=== PATIENT | male | born 1955 ===

== ENCOUNTER 2017-05-20 18:48 | Observation (INO) | payer BC ==
[2017-05-20 18:48] VITALS: BMI 29.0
[2017-05-20] MEDS ORDERED: Albuterol-Ipratrop 3 mg / 0.5 (3 ml) UD IH STA ×2 (19:48→23:15)
--- NOTE | 2017-05-20 19:54 | ED PDOC ---
Arrival/HPI <Kaela Eisenberg - Last Filed: 05/20/17 23:15> - General Historian: Patient - History of Present Illness Time/Duration: 1 week Symptom Onset: Gradual Symptom Course: Improving Activities at Onset: Light <Geovanny Grace DO - Last Filed: 05/21/17 06:21> - General Chief Complaint: Cough, Cold, Congestion Time Seen by Provider: 05/20/17 19:19 - History of Present Illness Narrative History of Present Illness (Text): CC: cough 05/20/17 19:51 62M presents with PMH of HTN, HLD, and asthma presents with coughing since Monday 05/15. Patient states that he started coughing on Tuesday with some blood production. Patient states he takes montelukast every day for his asthma. Patient states he feels better compared to Tuesday, but is concerned about his fever. Stevens (Kaela Eisenberg) Past Medical History - Infectious Disease Hx of Infectious Diseases: None - Tetanus Immunization Tetanus Immunization: Unknown - Cardiac Hx Hypertension: Yes - Pulmonary Hx Asthma: Yes - Hematological/Oncological Hx Cancer: Yes (prostate ca) - Musculoskeletal/Rheumatological Hx Falls: No - Genitourinary/Gynecological Hx Prostate Cancer: Yes (2005) - Psychiatric Hx Depression: No Hx Emotional Abuse: No Hx Physical Abuse: No Hx Substance Use: No - Surgical History Other/Comment: Prostate removed in 2005 - Anesthesia Hx Anesthesia: Yes Hx Anesthesia Reactions: No Hx Malignant Hyperthermia: No - Suicidal Assessment Feels Threatened In Home Enviroment: No <Kaela Eisenberg - Last Filed: 05/20/17 23:15> Family/Social History Family/Social History: Unknown Family HX Smoking Status: Never Smoked Hx Alcohol Use: Yes Hx Substance Use: No <Kaela Eisenberg - Last Filed: 05/20/17 23:15> Allergies/Home Meds <Kaela Eisenberg - Last Filed: 05/20/17 23:15> <Geovanny Grace DO - Last Filed: 05/21/17 06:21> Allergies/Adverse Reactions: Allergies No Known Allergies Allergy (Verified 10/31/13 02:26) Home Medications: Home Meds Medication Instructions Recorded Confirmed Atorvastatin [Lipitor] 10 mg PO DAILY 11/06/15 05/20/17 Lisinopril/Hydrochlorothiazide 1 tab PO DAILY 11/06/15 05/20/17 [Lisinopril-Hctz 20-25 mg Tab] Montelukast [Singulair] 10 mg PO DAILY 11/06/15 05/20/17 Omeprazole [Prilosec] 20 mg PO DAILY 11/06/15 05/20/17 amLODIPine [Norvasc] 10 mg PO DAILY 11/06/15 05/20/17 Review of Systems - Physician Review All systems were reviewed & negative as marked: Yes - Review of Systems Constitutional: Normal Eyes: Normal ENT: Normal Respiratory: Cough, Sputum, Wheezing Cardiovascular: Normal Gastrointestinal: absent: Abdominal Pain, Stool Changes, Constipation, Diarrhea Genitourinary Male: absent: Dysuria, Frequency, Hematuria, Urinary Output Changes Musculoskeletal: absent: Arthralgias, Back Pain, Neck Pain Skin: absent: Rash, Pruritis, Skin Lesions Neurological: absent: Headache, Dizziness, Focal Weakness Endocrine: absent: Diaphoresis, Polyuria, Polydipsia Hemo/Lymphatic: absent: Adenopathy, Easy Bleeding, Easy Bruising Psychiatric: absent: Anxiety, Depression, Suicidal Ideation <Eng,Kaela - Last Filed: 05/20/17 23:15> Physical Exam Vital Signs Reviewed: Yes Temperature: Febrile Blood Pressure: Normal Pulse: Regular Respiratory Rate: Normal Appearance: Positive for: Uncomfortable Pain Distress: Mild Mental Status: Positive for: Alert and Oriented X 3 - Systems Exam Head: Present: Atraumatic, Normocephalic Pupils: Present: PERRL Extroacular Muscles: Present: EOMI Conjunctiva: Present: Normal Mouth: Present: Moist Mucous Membranes. No: Dry, Drooling, Trismus Respiratory/Chest: Present: Wheezes, Decreased Breath Sounds. No: Accessory Muscle Use, Rhonchi Cardiovascular: Present: Regular Rate and Rhythm, Normal S1, S2 Upper Extremity: Present: Normal Inspection, Normal ROM, NORMAL PULSES, Capillary Refill < 2s. No: Edema Lower Extremity: Present: Normal Inspection, NORMAL PULSES, Normal ROM, Capillary Refill < 2 s. No: Edema Neurological: Present: GCS=15, CN II-XII Intact, Speech Normal Skin: Present: Warm, Dry Psychiatric: Present: Alert, Oriented x 3, Normal Insight, Normal Concentration <Eng,Kaela - Last Filed: 05/20/17 23:15> Vital Signs Temp Pulse Resp BP Pulse Ox 05/21/17 00:01 71 18 126/78 96 05/20/17 21:12 99.6 F 05/20/17 19:54 103 F H 05/20/17 19:10 103 F H 72 18 127/68 100 Medical Decision Making Re-evaluation Time: 23:15 Reassessment Condition: Re-examined, Improving,but remains with symptoms - Lab Interpretations I have reviewed the lab results: Yes Interpretation: Abnormal lab values (leukocytosis 12.5) - 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 Patient was seen and evaluated with resident. Came up with plan and treatment together. Patient presents complaining of cough for the past week. Plan: -- EKG -- Labs -- CXR 2 Views -- Zithromax -- Blood Culture -- Urine Culture -- Influenza A B -- Urinalysis (Geovanny Grace DO) - Lab Interpretations Narrative Lab Interpretation (Text): 05/20/17 21:06 leukocytosis negative troponin I (Kaela Eisenberg) Lab Results: 05/20/17 19:55 05/20/17 19:55 Lab Results 05/20/17 19:55: Influenza Typ A,B (EIA) Negative for flu a/b 05/20/17 19:55: Sodium 139, Potassium 3.6, Chloride 101, Carbon Dioxide 28, Anion Gap 13, BUN 11, Creatinine 1.0, Est GFR ( Amer) > 60, Est GFR (Non- Af Amer) > 60, Random Glucose 108, Calcium 9.3, Total Bilirubin 0.6, AST 33, ALT 34, Alkaline Phosphatase 73, Lactate Dehydrogenase 617, Total Creatine Kinase 341 H, CK-MB (CK-2) 1.1, CK-MB (CK-2) % Cancelled, Troponin I < 0.01, Total Protein 7.2, Albumin 3.9, Globulin 3.3, Albumin/Globulin Ratio 1.2 05/20/17 19:55: WBC 12.5 H D, RBC 5.29, Hgb 12.2 L, Hct 38.4 L, MCV 72.6 L, MCH 23.1 L, MCHC 31.8, RDW 14.7 H, Plt Count 185, MPV 9.5, Gran % 74.7 H, Lymph % ( Auto) 15.6 L, [place] % (Auto) 8.9 H, Eos % (Auto) 0.6 L, Baso % (Auto) 0.2, Gran # 9.36 H, Lymph # 2.0, [place] # 1.1 H, Eos # 0.1, Baso # 0.02 - RAD Interpretation Narrative RAD Interpretations (Text): 05/20/17 23:16 CXR pneumonia (Eng,Kaela) Radiology Orders: 05/20/17 19:20 CHEST TWO VIEWS (PA/LAT) [RAD] Stat - Medication Orders Current Medication Orders: Acetaminophen (Tylenol 325mg Tab) 650 mg PO Q6H PRN PRN Reason: Fever >100.4 F Albuterol/Ipratropium (Duoneb 3 Mg/0.5 Mg (3 Ml) Ud) 3 ml IH [id number] [facility] Last Admin: 05/21/17 01:23 Dose: 3 ml Amlodipine Besylate (Norvasc) 10 mg PO DAILY NAS Atorvastatin Calcium (Lipitor) 10 mg PO DAILY NAS Guaifenesin (Robitussin) 100 mg PO Q4H PRN PRN Reason: Cough Heparin Sodium (Porcine) (Heparin) 5,000 units SC Q12 NAS PRN Reason: Protocol Last Admin: 05/21/17 01:32 Dose: Not Given Non-Admin Reason: Patient Asleep Hydrochlorothiazide (Hydrodiuril) 25 mg PO DAILY [facility] Ceftriaxone Sodium (Rocephin 1 Gram Ivpb) 1 gm in 100 mls @ 100 mls/hr IVPB DAILY NAS PRN Reason: Protocol Azithromycin (Zithromax 500mg In Ns) 500 mg in 250 mls @ 167 mls/hr IVPB DAILY NAS PRN Reason: Protocol Lisinopril (Zestril) 20 mg PO DAILY NAS Montelukast Sodium (Singulair) 10 mg PO HS NAS Pantoprazole Sodium (Protonix Inj) 40 mg IVP Q12 NAS Last Admin: 05/21/17 01:33 Dose: Not Given Non-Admin Reason: Patient Asleep Discontinued Medications Acetaminophen (Tylenol 325mg Tab) 975 mg PO STAT STA Stop: 05/20/17 19:21 Last Admin: 05/20/17 19:54 Dose: 975 mg MAR Pain/Vitals Document 05/20/17 19:54 SS (Rec: 05/20/17 19:54 SS [id number]) Vitals Temperature (97.6 F-99.6 F) 103 F Temperature Source Oral Albuterol/Ipratropium (Duoneb 3 Mg/0.5 Mg (3 Ml) Ud) 3 ml IH STAT STA Stop: 05/20/17 19:49 Last Admin: 05/20/17 20:39 Dose: 3 ml Albuterol/Ipratropium (Duoneb 3 Mg/0.5 Mg (3 Ml) Ud) 3 ml IH STAT STA Stop: 05/20/17 23:16 Last Admin: 05/21/17 00:22 Dose: 3 ml Ceftriaxone Sodium (Rocephin 2 Gm Ivpb) 2 gm in 100 mls @ 100 mls/hr IVPB STAT STA PRN Reason: Protocol Stop: 05/21/17 00:02 Last Admin: 05/21/17 00:21 Dose: 100 mls/hr eMAR Start Stop Document 05/21/17 00:21 SS (Rec: 05/21/17 00:22 SS [id number]) Intravenous Solution Start Date 05/21/17 Start Time 00:22 Azithromycin (Zithromax 500mg In Ns) 500 mg in 250 mls @ 167 mls/hr IVPB STAT STA PRN Reason: Protocol Stop: 05/21/17 00:32 Methylprednisolone (Solu-Medrol) 125 mg IVP STAT STA Stop: 05/20/17 19:49 Last Admin: 05/20/17 20:39 Dose: 125 mg IVP Administration Document 05/20/17 20:39 SS (Rec: 05/20/17 20:39 SS [id number]) Charges for Administration # of IVP Administrations 1 Pneumococcal Polyvalent Vaccine (Pneumovax 23 Vaccine) 0.5 ml IM .ONCE ONE Stop: 05/21/17 01:32 <Kaela Eisenberg - Last Filed: 05/20/17 23:15> - Scribe Statement The provider has reviewed the documentation as recorded by the Scribe <Geovanny Grace DO - Last Filed: 05/21/17 06:21> - Scribe Statement Yadi Fountain Provider Scribe Attestation: All medical record entries made by the Scribe were at my direction and personally dictated by me. I have reviewed the chart and agree that the record accurately reflects my personal performance of the history, physical exam, medical decision making, and the department course for this patient. I have also personally directed, reviewed, and agree with the discharge instructions and disposition. (Geovanny Grace DO) Disposition/Present on Arrival - Present on Arrival Any Indicators Present on Arrival: No History of DVT/PE: No History of Uncontrolled Diabetes: No Urinary Catheter: No History of Decub. Ulcer: No History Surgical Site Infection Following: None - Disposition Have Diagnosis and Disposition been Completed?: Yes Disposition Time: 23:18 Patient Plan: Observation <Kaela Eisenberg - Last Filed: 05/20/17 23:15> - Disposition Disposition Time: 23:10 <Geovanny Grace DO - Last Filed: 05/21/17 06:21> - Disposition Diagnosis: Pneumonia Disposition: HOSPITALIZED Patient Problems: Current Active Problems Problem Status Onset Pneumonia Acute Condition: GUARDED
[2017-05-20 20:18] LABS: BASO # 0.02 K/mm3 (0.0-2.0); BASO % 0.2 % (0.0-3.0); EOS # 0.1 (0.0-0.7); EOS % 0.6 % (1.5-5.0); GRAN # 9.36 (1.4-6.5); GRAN % 74.7 % (50.0-68.0); HEMOGLOBIN 12.2 g/dL (14.0-18.0); LYMPH % 15.6 % (22.0-35.0); MEAN CELL VOLUME 72.6 fl (80.0-105.0); MEAN CORPUSCULAR HEMOGLOBIN 23.1 pg (25.0-35.0); MEAN CORPUSCULAR HGB CONC 31.8 g/dl (31.0-37.0); MEAN PLATELET VOLUME 9.5 fl (7.0-11.0); MONO # 1.1 (0.1-0.6); MONO % 8.9 % (1.0-6.0); RBC 5.29 10^6/uL (3.5-6.1); RED CELL DISTRIBUTION WIDTH 14.7 % (11.5-14.5); WHITE BLOOD COUNT 12.5 10^3/ul (4.5-11.0)
[2017-05-20 20:33] LABS: ALB/GLOB RATIO 1.2 (1.1-1.8); ALBUMIN 3.9 g/dL (3.0-4.8); ALT/SGPT 34 U/L (7-56); AST/SGOT 33 U/L (17-59); BLOOD UREA NITROGEN 11 mg/dL (7-21); CALCIUM 9.3 mg/dL (8.4-10.5); GFR AFRICAN-AMERICAN > 60; GFR NON-AFRICAN AMERICAN > 60; TROPONIN I < 0.01 ng/mL
[2017-05-20 20:53] LABS: CK-MB 1.1 ng/mL (0.0-3.6)
[2017-05-20] MEDS ORDERED: Azithromycin 500MG/NS 250ml 500 MG/250 ML BAG IVPB STA (23:03)
[2017-05-20] MEDS ORDERED: cefTRIAXone 2 GM IN NS 2 GM/100 ML BAG IVPB STA (23:03)
--- NOTE | 2017-05-21 00:01 | CP.PCM.HP ---
<Frank Torre - Last Filed: 05/21/17 01:16> History of Present Illness - History of Present Illness History of Present Illness: Chief complaint: Incessant cough, fever, chills HPI:Patient is a 62 year old male with a past medical history of asthma, hypertension, dyslipidemia, prostate cancer s/p prostatectomy who presents to [facility] with complaints of cough which began five days ago. Patient states through the course of the week the became worse which caused him to miss work the past two days. Describes cough as productive currently producing white phlegm, initially noted to be blood tinged which has since resolved. Patient also admits to associated fevers and chills during the course of the week. Patient states he currently feels much better than he did previously. Denies chest pain, abdominal pain, headache, body aches, nausea, vomiting, diarrhea. 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 Stevens Surgical history: Prostatectomy s/p Prostate ca in 2005 (no radiation or chemotherapy) Present medical illness: asthma, hypertension, dyslipidemia Family history: non contributory Medications: singulair, lipitor, norvasc, lisinopril-HCTZ, prilosec. Patient states he is prescribed albuterol but does not take it because he doesn't feel the need, however states he takes singular on a daily basis Social history: denies tobacco, alcohol, illicit drug use Present on Admission - Present on Admission Any Indicators Present on Admission: No Review of Systems - Constitutional Constitutional: Chills, Fever. absent: Headache - EENT Eyes: absent: Blurred Vision, Change in Vision Nose/Mouth/Throat: absent: Nasal Congestion, Nasal Discharge - Cardiovascular Cardiovascular: absent: Chest Pain, Dyspnea, Palpitations - Respiratory Respiratory: Cough. absent: Dyspnea on Exertion, Wheezing - Gastrointestinal Gastrointestinal: absent: Abdominal Pain, Diarrhea, Nausea, Vomiting - Genitourinary Genitourinary: absent: Difficulty Urinating, Dysuria - Neurological Neurological: absent: Dizziness, Numbness, Weakness - Psychiatric Psychiatric: absent: Anxiety, Change in Appetite Past Patient History - Infectious Disease Hx of Infectious Diseases: None - Tetanus Immunizations Tetanus Immunization: Unknown - Past Social History Smoking Status: Never Smoked - CARDIAC Hx Hypertension: Yes - PULMONARY Hx Asthma: Yes - HEMATOLOGICAL/ONCOLOGICAL Hx Cancer: Yes (prostate ca) - MUSCULOSKELETAL/RHEUMATOLOGICAL Hx Falls: No - GENITOURINARY/GYNECOLOGICAL Hx Prostate Cancer: Yes (2005) - PSYCHIATRIC Hx Depression: No Hx Emotional Abuse: No Hx Physical Abuse: No Hx Substance Use: No - SURGICAL HISTORY Other/Comment: Prostate removed in 2005 - ANESTHESIA Hx Anesthesia: Yes Hx Anesthesia Reactions: No Hx Malignant Hyperthermia: No Meds Allergies/Adverse Reactions: Allergies Allergy/AdvReac Type Severity Reaction Status Date / Time No Known Allergies Allergy Verified 10/31/13 02:26 Physical Exam - Constitutional Appears: Non-toxic, No Acute Distress - Head Exam Head Exam: ATRAUMATIC, NORMAL INSPECTION, NORMOCEPHALIC - Eye Exam Eye Exam: EOMI, Normal appearance Pupil Exam: PERRL - ENT Exam ENT Exam: Mucous Membranes Moist, Normal Exam, Normal Oropharynx - Neck Exam Neck exam: Positive for: Normal Inspection. Negative for: Lymphadenopathy, Tenderness - Respiratory Exam Respiratory Exam: Wheezes (B/L upper and lower lobes). absent: Clear to Auscultation Bilateral - Cardiovascular Exam Cardiovascular Exam: REGULAR RHYTHM, +S1, +S2. absent: Gallop, JVD - GI/Abdominal Exam GI & Abdominal Exam: Normal Bowel Sounds, Soft - Extremities Exam Extremities exam: Positive for: normal inspection. Negative for: calf tenderness, tenderness - Back Exam Back exam: NORMAL INSPECTION - Neurological Exam Neurological exam: Alert, CN II-XII Intact, Oriented x3 - Psychiatric Exam Psychiatric exam: Normal Affect - Skin Skin Exam: Intact, Normal Color, Warm Results - Vital Signs Recent Vital Signs: Last Vital Signs Temp 99.6 F 05/20/17 21:12 Pulse 72 05/20/17 19:10 Resp 18 05/20/17 19:10 BP 127/68 05/20/17 19:10 Pulse Ox 100 05/20/17 19:10 - Labs Result Diagrams: 05/20/17 19:55 05/20/17 19:55 Labs: Laboratory Results - last 24 hr 05/20/17 05/20/17 05/20/17 19:55 19:55 19:55 WBC 12.5 H D RBC 5.29 Hgb 12.2 L Hct 38.4 L MCV 72.6 L MCH 23.1 L MCHC 31.8 RDW 14.7 H Plt Count 185 MPV 9.5 Gran % 74.7 H Lymph % (Auto) 15.6 L [place] % (Auto) 8.9 H Eos % (Auto) 0.6 L Baso % (Auto) 0.2 Gran # 9.36 H Lymph # 2.0 [place] # 1.1 H Eos # 0.1 Baso # 0.02 Sodium 139 Potassium 3.6 Chloride 101 Carbon Dioxide 28 Anion Gap 13 BUN 11 Creatinine 1.0 Est GFR ( Amer) > 60 Est GFR (Non-Af Amer) > 60 Random Glucose 108 Calcium 9.3 Total Bilirubin 0.6 AST 33 ALT 34 Alkaline Phosphatase 73 Lactate Dehydrogenase 617 Total Creatine Kinase 341 H CK-MB (CK-2) 1.1 CK-MB (CK-2) % Cancelled Troponin I < 0.01 Total Protein 7.2 Albumin 3.9 Globulin 3.3 Albumin/Globulin Ratio 1.2 Influenza Typ A,B (EIA) Negative for flu a/b Assessment & Plan - Assessment and Plan (Free Text) Assessment: Patient is a 62 year old male with a past medical history of asthma, hypertension, dyslipidemia, prostate cancer s/p prostatectomy who presents to [facility] with complaints of cough which began five days ago. Plan: Community acquired pneumonia -Continue with rocephin and azithromycin -Procalcitonin ordered; results pending -S. pneumoniae, Legionella, Mycoplasma studied sent -Tylenol PRN for fever -Robitussin PRN for cough -CBC, CMP, Mg ordered for morning labs -Sputum cultures ordered; results pending -Port Criteria score 60 Asthma -Continue duonebs PRN -Continue montelukast Hypertension -Continue lisinopril/HCTZ and norvasc Dyslipidmia -Continue lipitor DVT/GI prophylaxis Heparin/Protonix <Lydia Su - Last Filed: 05/21/17 07:23> Results - Vital Signs Recent Vital Signs: Last Vital Signs Temp 97.8 F 05/21/17 01:11 Pulse 70 05/21/17 01:20 Resp 20 05/21/17 01:11 BP 122/72 05/21/17 01:11 Pulse Ox 96 05/21/17 00:01 - Labs Result Diagrams: 05/20/17 19:55 05/20/17 19:55 Attending/Attestation - Attestation I have personally seen and examined this patient.: Yes I have fully participated in the care of the patient.: Yes I have reviewed all pertinent clinical information: Yes Notes (Text): 05/21/17 07:23 Patient was seen when he was in the ER . Agree with history, physical examination, assessment and plan.
[2017-05-21] MEDS ORDERED: guaiFENesin 100 mg/5 ml Syrup UD PO PRN (00:56)
[2017-05-21] MEDS: Albuterol-Ipratrop 3 mg / 0.5 (3 ml) UD IH SCH ×3 (01:23→14:02)
[2017-05-21 01:30] VITALS: RESP 20
[2017-05-21] MEDS ORDERED: Influenza Vaccine 60 mcg/0.5 mL SYR (4YR UP) IM ONE (01:31)
[2017-05-21] MEDS ORDERED: Pneumococcal 23-Valent Vaccine IM ONE (01:31)
[2017-05-21] MEDS ORDERED: Sodium Chloride 0.9% 1,000 ML IV SCH (07:30)
--- NOTE | 2017-05-21 08:28 | RAD ---
HISTORY: COMPARISON: 11/06/2015. TECHNIQUE: Chest PA and lateral FINDINGS: LINES AND TUBES: None. LUNG AND PLEURA: The lungs are well inflated. There is consolidation with air bronchogram in the lingula. HEART AND MEDIASTINUM: The heart is not enlarged. The hilar and mediastinal contours are within normal limits. SKELETAL STRUCTURES: The bony structures are within normal limits for the patient's age. VISUALIZED UPPER ABDOMEN: Normal. OTHER FINDINGS: None. IMPRESSION: Lingular pneumonia. Follow-up after medical management is recommended to ensure complete resolution.
[2017-05-21 08:33] VITALS: BP 130/80; PULSE 50; TEMP 97.4; O2SAT 97
[2017-05-21 09:40] LABS: BASO # 0.01 K/mm3 (0.0-2.0); BASO % 0.1 % (0.0-3.0); GRAN # 11.64 (1.4-6.5); GRAN % 90.5 % (50.0-68.0); HEMOGLOBIN 11.9 g/dL (14.0-18.0); LYMPH % 7.5 % (22.0-35.0); MEAN CELL VOLUME 72.1 fl (80.0-105.0); MEAN CORPUSCULAR HEMOGLOBIN 22.6 pg (25.0-35.0); MEAN CORPUSCULAR HGB CONC 31.3 g/dl (31.0-37.0); MEAN PLATELET VOLUME 10.7 fl (7.0-11.0); MONO # 0.2 (0.1-0.6); MONO % 1.9 % (1.0-6.0); PLATELET COUNT 182 10^3/uL (120.0-450.0); RBC 5.27 10^6/uL (3.5-6.1); RED CELL DISTRIBUTION WIDTH 14.8 % (11.5-14.5); WHITE BLOOD COUNT 12.9 10^3/ul (4.5-11.0)
[2017-05-21 09:46] LABS: ALB/GLOB RATIO 1.1 (1.1-1.8); ALBUMIN 3.7 g/dL (3.0-4.8); ALT/SGPT 32 U/L (7-56); AST/SGOT 28 U/L (17-59); BLOOD UREA NITROGEN 12 mg/dL (7-21); CALCIUM 9.8 mg/dL (8.4-10.5); GFR AFRICAN-AMERICAN > 60; GFR NON-AFRICAN AMERICAN > 60; MAGNESIUM 2.5 mg/dL (1.7-2.2)
[2017-05-21] MEDS ORDERED: Azithromycin 500MG/NS 250ml 500 MG/250 ML BAG IVPB SCH (10:00)
[2017-05-21] MEDS ORDERED: cefTRIAXone 1 gm 1 GM/100 ML BAG IVPB SCH (10:00)
[2017-05-21 11:16] LABS: BAND 5 % (0-2); LYMPHOCYTE 10 % (22.0-35.0); MONOCYTE 3 % (1.0-6.0); NEUTROPHIL 82 % (50.0-70.0)
[2017-05-21 11:17] LABS: ANISOCYTOSIS SLIGHT; HYPOCHROMIA SLIGHT; OVALOCYTES SLIGHT; PLATELET ESTIMATE NORMAL (NORMAL); POIKILOCYTOSIS SLIGHT
[2017-05-21 11:18] LABS: BURR CELLS SLIGHT
--- NOTE | 2017-05-21 13:36 | CP.PCM.DIS ---
<Ivan Yanes - Last Filed: 05/21/17 14:31> Provider - Provider Date of Admission: 05/20/17 23:17 Attending physician: Ruperto Rodney MD Primary care physician: Dr. Stevens Time Spent in preparation of Discharge (in minutes): 35 Diagnosis - Discharge Diagnosis (1) URI (upper respiratory infection) Status: Suspected Priority: High (2) Productive cough Status: Acute Priority: High (3) Bronchitis Status: Suspected Priority: High (4) Pneumonia Status: Suspected Priority: High Hospital Course - Lab Results Lab Results: Most Recent Lab Values WBC 12.9 10^3/ul (4.5-11.0) H 05/21/17 09:00 RBC 5.27 10^6/uL (3.5-6.1) 05/21/17 09:00 Hgb 11.9 g/dL (14.0-18.0) L 05/21/17 09:00 Hct 38.0 % (42.0-52.0) L 05/21/17 09:00 MCV 72.1 fl (80.0-105.0) L 05/21/17 09:00 MCH 22.6 pg (25.0-35.0) L 05/21/17 09:00 MCHC 31.3 g/dl (31.0-37.0) 05/21/17 09:00 RDW 14.8 % (11.5-14.5) H 05/21/17 09:00 Plt Count 182 10^3/uL (120.0-450.0) 05/21/17 09:00 MPV 10.7 fl (7.0-11.0) 05/21/17 09:00 Gran % 90.5 % (50.0-68.0) H 05/21/17 09:00 Lymph % (Auto) 7.5 % (22.0-35.0) L 05/21/17 09:00 [place] % (Auto) 1.9 % (1.0-6.0) 05/21/17 09:00 Eos % (Auto) 0.0 % (1.5-5.0) L 05/21/17 09:00 Baso % (Auto) 0.1 % (0.0-3.0) 05/21/17 09:00 Gran # 11.64 (1.4-6.5) H 05/21/17 09:00 Lymph # 1.0 (1.2-3.4) L 05/21/17 09:00 [place] # 0.2 (0.1-0.6) 05/21/17 09:00 Eos # 0.0 (0.0-0.7) 05/21/17 09:00 Baso # 0.01 K/mm3 (0.0-2.0) 05/21/17 09:00 Neutrophils % (Manual) 82 % (50.0-70.0) H 05/21/17 09:00 Band Neutrophils % 5 % (0-2) H 05/21/17 09:00 Lymphocytes % (Manual) 10 % (22.0-35.0) L 05/21/17 09:00 Monocytes % (Manual) 3 % (1.0-6.0) 05/21/17 09:00 Platelet Evaluation Normal (NORMAL) 05/21/17 09:00 Hypochromasia Slight 05/21/17 09:00 Poikilocytosis (manual Slight 05/21/17 09:00 Anisocytosis (manual) Slight 05/21/17 09:00 Ovalocytes Slight 05/21/17 09:00 [place] Cells Slight 05/21/17 09:00 APTT 28.7 Seconds (25.1-36.5) 05/21/17 10:25 Sodium 144 mmol/L (132-148) 05/21/17 09:00 Potassium 3.6 mmol/L (3.6-5.0) 05/21/17 09:00 Chloride 105 mmol/L (98-107) 05/21/17 09:00 Carbon Dioxide 27 mmol/L (21-33) 05/21/17 09:00 Anion Gap 16 (10-20) 05/21/17 09:00 BUN 12 mg/dL (7-21) 05/21/17 09:00 Creatinine 0.8 mg/dl (0.8-1.5) 05/21/17 09:00 Est GFR ( Amer) > 60 05/21/17 09:00 Est GFR (Non-Af Amer) > 60 05/21/17 09:00 Random Glucose 180 mg/dL (70-110) H 05/21/17 09:00 Calcium 9.8 mg/dL (8.4-10.5) 05/21/17 09:00 Magnesium 2.5 mg/dL (1.7-2.2) H 05/21/17 09:00 Total Bilirubin 0.3 mg/dL (0.2-1.3) 05/21/17 09:00 AST 28 U/L (17-59) 05/21/17 09:00 ALT 32 U/L (7-56) 05/21/17 09:00 Alkaline Phosphatase 77 U/L (38-126) 05/21/17 09:00 Lactate Dehydrogenase 617 U/L (333-699) 05/20/17 19:55 Total Creatine Kinase 341 U/L (35-230) H 05/20/17 19:55 CK-MB (CK-2) 1.1 ng/mL (0.0-3.6) 05/20/17 19:55 CK-MB (CK-2) % Cancelled 05/20/17 19:55 Troponin I < 0.01 ng/mL 05/20/17 19:55 Total Protein 7.1 g/dL (5.8-8.3) 05/21/17 09:00 Albumin 3.7 g/dL (3.0-4.8) 05/21/17 09:00 Globulin 3.4 gm/dL 05/21/17 09:00 Albumin/Globulin Ratio 1.1 (1.1-1.8) 05/21/17 09:00 Procalcitonin 0.14 NG/ML (0.19-0.49) L 05/21/17 07:00 Influenza Typ A,B (EIA) Negative for flu a/b (NEGATIVE) 05/20/17 19:55 - Hospital Course Hospital Course: This is a 62 year old male with a past medical history of asthma, hypertension, dyslipidemia, prostate cancer s/p prostatectomy who presented to [facility] with complaint progressively worsening productive cough x5 days. Cough initially productive of only clear-white sputum, but was blood tinged prior to presenting, which prompted patient to come to hospital. Blood-tinging resolved , but patient reports cough now productive of some yellow sputum since this AM. Reports subjective fevers at home, but never measured. 2x temperatures of 103F reported in the ED, but afebrile since arrival on the floor. Denies chest pain, shortness of breath, nausea, emesis, diarrhea, or focal weakness. Given the report of blood tinged sputum with several days of persistent coughing, concern for possible bronchitis. Patient was switched from IV Zithromax and Rocephin to PO levaquin 500mg daily for a 6-day course. He was also given a work note at his request. Patient was instructed to resume all home meds and take as prescribed, in addition to the 6-day course of Levofloxacin he was given a script for. He was also instructed to follow up with his PMD within 1 week. Patient expressed understanding and agreement with these instructions. Patient was given an opportunity to ask questions, but had none, and was then discharged. Patient seen, reviewed, and examined with attending, Dr. Rodney. Discharge Exam - Head Exam Head Exam: ATRAUMATIC, NORMAL INSPECTION, NORMOCEPHALIC - Eye Exam Eye Exam: EOMI, Normal appearance. absent: Conjunctival injection, Scleral icterus Pupil Exam: absent: Irregular, Unequal - ENT Exam ENT Exam: Mucous Membranes Moist - Neck Exam Neck exam: Full Rom, Normal Inspection - Respiratory Exam Respiratory Exam: Clear to PA & Lateral, NORMAL BREATHING PATTERN, UNREMARKABLE. absent: Accessory Muscle Use, Chest Wall Tenderness, Decreased Breath Sounds, Prolonged Expiratory Phase, Rales, Rhonchi, Wheezes, Respiratory Distress - Cardiovascular Exam Cardiovascular Exam: REGULAR RHYTHM, RRR, +S1, +S2. absent: Bradycardia, Tachycardia, Irregular Rhythm, JVD, +S4 - GI/Abdominal Exam GI & Abdominal Exam: Normal Bowel Sounds, Soft, Unremarkable. absent: Distended , Firm, Guarding, Rigid, Tenderness - Rectal Exam Rectal Exam: Deferred - Extremities Exam Extremities exam: normal capillary refill, normal inspection, pedal pulses present - Neurological Exam Additional comments: awake and alert, following all commands appropriately, moving all extremities spontaneously motor grossly intact and equal bilaterally - Psychiatric Exam Psychiatric exam: Normal Affect, Normal Mood - Skin Skin Exam: Dry, Intact, Normal Color, Warm Discharge Plan - Discharge Medications Prescriptions: levoFLOXacin [Levaquin] 500 mg PO DAILY #6 tab - Follow Up Plan Condition: GUARDED Disposition: HOME/ ROUTINE Instructions: Acute Bronchitis (GEN), Community Acquired Pneumonia (DC) Additional Instructions: -You have been given a prescription for 6 days of an antibiotic, Levaquin. Please fill the prescription and start taking today. Please complete the course of antibiotic; DO NOT stop taking it before you finish the course even if you feel better. -Please follow up with your Primary Medical Doctor within 1 week of discharge -If you experience any new or concerning symptoms, please return to the hospital. - Le dieron dat receta por 6 fuchs de un antibitico, Levaquin. Por favor, complete la receta y comience a elio hoy. Por favor complete el curso de antibi rain; NO deje de tomarlo antes de terminar el curso, incluso si se siente mejor. -Por favor, shon un seguimiento con colon mdico de ludara dentro de 1 semana de hraley -Si experimenta cualquier sntoma nuevo o preocupante, regrese al hospital. Referrals: Avinash Stevens [Family Provider] - <Ruperto Rodney - Last Filed: 05/21/17 15:48> Provider - Provider Date of Admission: 05/20/17 23:17 Attending physician: Ruperto Rodney MD Hospital Course - Lab Results Lab Results: Most Recent Lab Values WBC 12.9 10^3/ul (4.5-11.0) H 05/21/17 09:00 RBC 5.27 10^6/uL (3.5-6.1) 05/21/17 09:00 Hgb 11.9 g/dL (14.0-18.0) L 05/21/17 09:00 Hct 38.0 % (42.0-52.0) L 05/21/17 09:00 MCV 72.1 fl (80.0-105.0) L 05/21/17 09:00 MCH 22.6 pg (25.0-35.0) L 05/21/17 09:00 MCHC 31.3 g/dl (31.0-37.0) 05/21/17 09:00 RDW 14.8 % (11.5-14.5) H 05/21/17 09:00 Plt Count 182 10^3/uL (120.0-450.0) 05/21/17 09:00 MPV 10.7 fl (7.0-11.0) 05/21/17 09:00 Gran % 90.5 % (50.0-68.0) H 05/21/17 09:00 Lymph % (Auto) 7.5 % (22.0-35.0) L 05/21/17 09:00 [place] % (Auto) 1.9 % (1.0-6.0) 05/21/17 09:00 Eos % (Auto) 0.0 % (1.5-5.0) L 05/21/17 09:00 Baso % (Auto) 0.1 % (0.0-3.0) 05/21/17 09:00 Gran # 11.64 (1.4-6.5) H 05/21/17 09:00 Lymph # 1.0 (1.2-3.4) L 05/21/17 09:00 [place] # 0.2 (0.1-0.6) 05/21/17 09:00 Eos # 0.0 (0.0-0.7) 05/21/17 09:00 Baso # 0.01 K/mm3 (0.0-2.0) 05/21/17 09:00 Neutrophils % (Manual) 82 % (50.0-70.0) H 05/21/17 09:00 Band Neutrophils % 5 % (0-2) H 05/21/17 09:00 Lymphocytes % (Manual) 10 % (22.0-35.0) L 05/21/17 09:00 Monocytes % (Manual) 3 % (1.0-6.0) 05/21/17 09:00 Platelet Evaluation Normal (NORMAL) 05/21/17 09:00 Hypochromasia Slight 05/21/17 09:00 Poikilocytosis (manual Slight 05/21/17 09:00 Anisocytosis (manual) Slight 05/21/17 09:00 Ovalocytes Slight 05/21/17 09:00 [place] Cells Slight 05/21/17 09:00 APTT 28.7 Seconds (25.1-36.5) 05/21/17 10:25 Sodium 144 mmol/L (132-148) 05/21/17 09:00 Potassium 3.6 mmol/L (3.6-5.0) 05/21/17 09:00 Chloride 105 mmol/L (98-107) 05/21/17 09:00 Carbon Dioxide 27 mmol/L (21-33) 05/21/17 09:00 Anion Gap 16 (10-20) 05/21/17 09:00 BUN 12 mg/dL (7-21) 05/21/17 09:00 Creatinine 0.8 mg/dl (0.8-1.5) 05/21/17 09:00 Est GFR ( Amer) > 60 05/21/17 09:00 Est GFR (Non-Af Amer) > 60 05/21/17 09:00 Random Glucose 180 mg/dL (70-110) H 05/21/17 09:00 Calcium 9.8 mg/dL (8.4-10.5) 05/21/17 09:00 Magnesium 2.5 mg/dL (1.7-2.2) H 05/21/17 09:00 Total Bilirubin 0.3 mg/dL (0.2-1.3) 05/21/17 09:00 AST 28 U/L (17-59) 05/21/17 09:00 ALT 32 U/L (7-56) 05/21/17 09:00 Alkaline Phosphatase 77 U/L (38-126) 05/21/17 09:00 Lactate Dehydrogenase 617 U/L (333-699) 05/20/17 19:55 Total Creatine Kinase 341 U/L (35-230) H 05/20/17 19:55 CK-MB (CK-2) 1.1 ng/mL (0.0-3.6) 05/20/17 19:55 CK-MB (CK-2) % Cancelled 05/20/17 19:55 Troponin I < 0.01 ng/mL 05/20/17 19:55 Total Protein 7.1 g/dL (5.8-8.3) 05/21/17 09:00 Albumin 3.7 g/dL (3.0-4.8) 05/21/17 09:00 Globulin 3.4 gm/dL 05/21/17 09:00 Albumin/Globulin Ratio 1.1 (1.1-1.8) 05/21/17 09:00 Procalcitonin 0.14 NG/ML (0.19-0.49) L 05/21/17 07:00 Influenza Typ A,B (EIA) Negative for flu a/b (NEGATIVE) 05/20/17 19:55 Attending/Attestation - Attestation I have personally seen and examined this patient.: Yes I have fully participated in the care of the patient.: Yes I have reviewed all pertinent clinical information, including history, physical exam and plan: Yes Notes (Text): 05/21/17 15:46 Patient was seen and examined with chief medical technologist. Agreed with assessment and plan. 62 yrs old male with CAP. Patient is afebrile, on room air.He is ambulatory and is hemodynamically stable. He will be discharged home on oral Levofloxacin and will follow up with PCP. Management plan was discussed in detail with patient. Education was provided.
--- NOTE | 2017-05-21 16:01 | CARD ---
APPROVED REPORT EKG Measurement Heart [id number] AL [id number] <Conclusion> Normal sinus rhythm Possible Left atrial enlargement Borderline ECG
== END 2017-05-21 17:07 | disposition home or self-care (01) ==
LOC: ED 18:48 → ERH 23:17 → 3RSO 05-21 01:07
PROVIDERS: ADMIT Internal Medicine; ATTEND Internal Medicine
DX: J18.9 Pneumonia, unspecified organism (principal); J06.9 Acute upper respiratory infection, unspecified; J40 Bronchitis, not specified as acute or chronic; E78.5 Hyperlipidemia, unspecified; I10 Essential (primary) hypertension; Z79.899 Other long term (current) drug therapy; Z85.46 Personal history of malignant neoplasm of prostate; Z90.79 Acquired absence of other genital organ(s); R40.2412 Glasgow coma scale score 13-15, at arrival to emergency department
CPT/HCPCS: 36415; 71046; 80053; 82550; 82553; 83615; 83735; 84145; 84484; 85025; 85730; 86738; 87040; 87804; 93005; 94640; 96365; 96372; 96375; 99284; C9113; G0378; J0696; J1644; J2930

== ENCOUNTER 2017-05-27 10:07 | Inpatient (IN) | payer BC ==
[2017-05-27 10:08] VITALS: BMI 29.0
[2017-05-27] MEDS ORDERED: Nitroglycerin 2% Ointment Foilpak UD TOP STA (10:38)
--- NOTE | 2017-05-27 10:45 | ED PDOC ---
Arrival/HPI - General Chief Complaint: Chest Pain Time Seen by Provider: 05/27/17 10:31 Historian: Patient, Spouse () EM Caveat: Language Barrier (georgian speaking) - History of Present Illness Narrative History of Present Illness (Text): 05/27/17 10:39 A 62 year old male, whose past medical history includes hypertension, hyperlipidemia, asthma, and prostate cancer (in remission), whom is accompanied by his , presents to the emergency department complaining of left-sided chest pain. Patient is translated by . Patient reports he awoke at approximately 04:00 due to left chest pain. Describes pain as a "jabbing" sensation, and severity was initially 8/10 upon waking, and is currently 6/10. States yesterday he was working with exertion more than usual. With the chest pain, Patient notes also experiencing slight shortness of breath, but denies any chills, nausea, vomiting, syncopal/near-syncopal episode, sweats, no radiation of pain or any other complaints. Also, patient has no history of NM and has not had heart checked out for over 5 years. Does not take Aspirin at home. pt denied urinary/bowel changes pt denied fall/trauma/sick contact, no opticianry teacher is here for further eval pt's without other complaints. PMD: Dr. Avinash Stevens 05/27/17 12:37 Time/Duration: Other (this morning at 04:00) Symptom Onset: Sudden Symptom Course: Unchanged Quality: Other ("jabbing" sensation) Severity Level: 8 Activities at Onset: Rest Context: Home Past Medical History - Provider Review Nursing Documentation Reviewed: Yes - Travel History Have you recently traveled outside [place] w/in the past 3 mons?: No - Past History Past History: No Previous - Infectious Disease Hx of Infectious Diseases: None - Tetanus Immunization Tetanus Immunization: Unknown - Cardiac Hx Cardiac Disorders: Yes Hx Hypertension: Yes - Pulmonary Hx Respiratory Disorders: Yes Hx Asthma: Yes Hx Bronchitis: Yes - Neurological Hx Neurological Disorder: No - HEENT Hx HEENT Disorder: No - Renal Hx Renal Disorder: No - Endocrine/Metabolic Hx Endocrine Disorders: No - Hematological/Oncological Hx Blood Disorders: Yes Hx Cancer: Yes (prostate ca) - Integumentary Hx Dermatological Disorder: No - Musculoskeletal/Rheumatological Hx Musculoskeletal Disorders: No Hx Falls: No - Gastrointestinal Hx Gastrointestinal Disorders: No - Genitourinary/Gynecological Hx Genitourinary Disorders: Yes Hx Prostate Cancer: Yes (2005) - Psychiatric Hx Psychophysiologic Disorder: No Hx Depression: No Hx Emotional Abuse: No Hx Physical Abuse: No Hx Substance Use: No - Surgical History Other/Comment: Prostate removed in 2006 - Anesthesia Hx Anesthesia: Yes Hx Anesthesia Reactions: No Hx Malignant Hyperthermia: No - Suicidal Assessment Feels Threatened In Home Enviroment: No Family/Social History - Physician Review Nursing Documentation Reviewed: Yes Family/Social History: No Known Family HX Smoking Status: Never Smoked Hx Alcohol Use: Yes Frequency of alcohol use: Socially Hx Substance Use: No Hx Substance Use Treatment: No Allergies/Home Meds Allergies/Adverse Reactions: Allergies No Known Allergies Allergy (Verified 05/27/17 10:22) Home Medications: Home Meds Medication Instructions Recorded Confirmed Atorvastatin [Lipitor] 10 mg PO DAILY 11/06/15 05/27/17 Lisinopril/Hydrochlorothiazide 1 tab PO DAILY 11/06/15 05/27/17 [Lisinopril-Hctz 20-25 mg Tab] Montelukast [Singulair] 10 mg PO DAILY 11/06/15 05/27/17 Omeprazole [Prilosec] 20 mg PO DAILY 11/06/15 05/27/17 amLODIPine [Norvasc] 10 mg PO DAILY 11/06/15 05/27/17 Review of Systems - Physician Review All systems were reviewed & negative as marked: Yes - Review of Systems Constitutional: absent: Night Sweats Eyes: Normal ENT: Normal Respiratory: SOB (slightly) Cardiovascular: Chest Pain (left-side chest pain, non-radiating). absent: Syncope Gastrointestinal: absent: Nausea, Vomiting Genitourinary Male: Normal Musculoskeletal: Normal Skin: Normal Neurological: Normal Endocrine: Normal Hemo/Lymphatic: Normal Psychiatric: Normal Physical Exam Vital Signs Reviewed: Yes Vital Signs Temp Pulse Resp BP Pulse Ox 05/27/17 13:10 57 L 18 113/72 95 05/27/17 11:32 55 L 18 115/73 96 05/27/17 10:23 98.2 F 67 18 123/52 L 97 Temperature: Afebrile Blood Pressure: Normal Pulse: Regular Respiratory Rate: Normal Appearance: Positive for: Well-Appearing, Other (resting in bed, mildly uncomfortable, alert/awake, GCS = 15, oriented x 3, cooperative) Pain Distress: None Mental Status: Positive for: Alert and Oriented X 3 - Systems Exam Head: Present: Atraumatic, Normocephalic Pupils: Present: PERRL, Other (no nystagmus, no photophobia, sclera anicteric; visual field intact b/l; wearing eyeglasses) Extroacular Muscles: Present: EOMI Conjunctiva: Present: Normal Ears: Present: Normal Mouth: Present: Moist Mucous Membranes, Normal Teeth, Other (no drooling/stridor , no exudate/lesions, no dysphonia) Pharnyx: Present: Normal Nose (External): Present: Atraumatic Nose (Internal): Present: Normal Inspection Neck: Present: Normal Range of Motion, Trachea Midline. No: MIDLINE TENDERNESS Respiratory/Chest: Present: Clear to Auscultation, Good Air Exchange, Other ( CTA b/l, no w/r/r, no tachypenia, no accessory muscle use noted). No: Respiratory Distress, Accessory Muscle Use Cardiovascular: Present: Regular Rate and Rhythm, Normal S1, S2. No: Murmurs Abdomen: Present: Normal Bowel Sounds, Other (well nourished male, no focal tenderness noted on exam, no esquivel's sign, no mcburney's point tenderness, no masses/rebound/guarding/rigidity). No: Tenderness, Distention, Peritoneal Signs Back: Present: Normal Inspection. No: Midline Tenderness Upper Extremity: Present: Normal Inspection, Normal ROM, NORMAL PULSES, Neurovascularly Intact, Capillary Refill < 2s. No: Cyanosis, Edema Lower Extremity: Present: Normal Inspection, NORMAL PULSES, Normal ROM, Neurovascularly Intact, Capillary Refill < 2 s. No: Edema, CALF TENDERNESS, Odug's Sign Neurological: Present: GCS=15, CN II-XII Intact, Speech Normal Skin: Present: Warm, Dry, Normal Color. No: Rashes Psychiatric: Present: Alert, Oriented x 3, Normal Insight, Normal Concentration Medical Decision Making ED Course and Treatment: 05/27/17 10:44 Impression: 62 year old male with chest pain and slight shortness of breath. Plan: chest pain, r/o acs; unlikely PE -- EKG -- Angio Chest CT -- Chest X-ray -- Labs -- Aspirin -- Nitroglycerin -- Urinalysis -- Reassess and disposition Prior Visits: Notes and results from previous visits were reviewed. Patient was last seen in the emergency department on 05/20/2017 for coughing. Patient was admitted. Progress Notes: 05/27/17 12:40 05/27/17 13:25 pt felt slightly improved following NTG pt states chest pain is now rated at 4/10 pt/son (at bedside) are made aware of pt's medical results agrees with admission I spoke to Dr HARRIS, television announcer PCP, made aware, agrees with ED mgt/txt, agrees with ABX, would like to consult Dr Serrato, and agrees with admission Re-evaluation Time: 12:41 Reassessment Condition: Improving,but remains with symptoms - Lab Interpretations Lab Results: 05/27/17 10:50 05/27/17 10:50 Lab Results 05/27/17 11:30: Urine Color Yellow, Urine Appearance Clear, Urine pH 6.5, Ur Specific [place] 1.010, Urine Protein Negative, Urine Glucose (UA) Negative, Urine Ketones Negative, Urine Blood Negative, Urine Nitrate Negative, Urine Bilirubin Negative, Urine Urobilinogen 0.2, Ur Leukocyte Esterase Negative 05/27/17 10:50: Sodium 139, Potassium 3.9, Chloride 104, Carbon Dioxide 26, Anion Gap 13, BUN 13, Creatinine 0.8, Est GFR ( Amer) > 60, Est GFR (Non- Af Amer) > 60, Random Glucose 113 H, Calcium 9.1, Magnesium 2.4 H, Total Bilirubin 0.6, AST 35, ALT 36, Alkaline Phosphatase 67, Lactate Dehydrogenase 602, Total Creatine Kinase 198, Troponin I < 0.01, NT-Pro-B Natriuret Pep 44.7, Total Protein 7.2, Albumin 3.5, Globulin 3.7, Albumin/Globulin Ratio 0.9 L, Lipase 85 05/27/17 10:50: WBC 13.4 H, RBC 4.95, Hgb 11.4 L, Hct 35.1 L, MCV 70.9 L, MCH 23.0 L, MCHC 32.5, RDW 14.1, Plt Count 356, MPV 9.5, Gran % 78.4 H, Lymph % ( Auto) 11.2 L, [place] % (Auto) 9.3 H, Eos % (Auto) 1.0 L, Baso % (Auto) 0.1, Gran # 10.50 H, Lymph # (Auto) 1.5, [place] # (Auto) 1.3 H, Eos # (Auto) 0.1, Baso # ( Auto) 0.02 I have reviewed the lab results: Yes Interpretation: Abnormal lab values (slightly elevated WBCs) - RAD Interpretation Narrative RAD Interpretations (Text): 05/27/17 13:11 CTA chest PE protocol Indication: hx of prostate CA, sudden left sided chest pain Technique: Contiguous axial images were obtained through the chest with intravenous contrast enhancement. Sagittal and coronal reconstructions were generated and reviewed. This CT exam was performed using 1 or more of the following dose reduction techniques: Automated exposure control, adjustment of the MAA and/or kV according to patient size, and/or use of iterative reconstruction technique. IV Contrast: 100 mL Omnipaque 350 Radiation dose (DLP): 470.06 MGy-cm. Comparison: Chest x-ray performed same day and 05/20/17 Findings: Visualized portions of the inferior thyroid gland demonstrates 5 mm left lower pole hypodense nodule. The mediastinal and hilar vascular structures appear within normal limits. The heart appears within normal limits of size. Sub cm mediastinal lymph nodes, nonspecific. No large central or segmental pulmonary embolus evident. Lingular consolidation with central lucencies and fluid level compatible with necrosis/cavitation. Bibasilar atelectasis/ infiltrates. Small left pleural effusion and associated consolidation. No pleural effusion. Small to moderate hiatal hernia/distal esophageal wall thickening. Limited visualized portions of the upper abdomen: Partially imaged hepatomegaly. Too small to characterize 7 mm right hepatic lobe hypodensity. Partially imaged 4.8 cm left renal hypodense lesion measures approximately 7 HU consistent with a cyst. Mild degenerative changes. Impression: No large central or segmental pulmonary embolus evident. Lingular consolidation with central lucencies and fluid level compatible with necrosis/cavitation. Considerations for cavitation include malignant neoplasm versus infection (such as tuberculosis or fungal infection). Bibasilar atelectasis/ infiltrates. Small left pleural effusion and associated consolidation. 5 mm left lower pole hypodense nodule. Small to moderate hiatal hernia/distal esophageal wall thickening. Limited visualized portions of the upper abdomen: Partially imaged hepatomegaly. Too small to characterize 7 mm right hepatic lobe hypodensity. Partially imaged 4.8 cm left renal hypodense lesion measures approximately 7 HU consistent with a cyst. 05/27/17 13:18 HISTORY: chest pain COMPARISON: 05/20/2017 TECHNIQUE: Chest PA and lateral FINDINGS: LUNGS: There is a persistent infiltrate in the lingular segment of the left upper lobe. There is no change PLEURA: No significant pleural effusion identified. No pneumothorax apparent. CARDIOVASCULAR: Normal. OSSEOUS STRUCTURES: No significant abnormalities. VISUALIZED UPPER ABDOMEN: Normal. OTHER FINDINGS: None. IMPRESSION: There is a persistent infiltrate in the lingular segment of the left upper lobe. There is no change Radiology Orders: 05/27/17 10:38 CHEST TWO VIEWS (PA/LAT) [RAD] Stat 05/27/17 10:40 ANGIO CHEST PE PROTOCOL [CT] Stat Field Broomer: Radiologist - EKG Interpretation EKG Interpretation (Text): 05/27/17 12:41 NSR at 65 bpm, normal axis, no ectopy, inverted T in leads III, non-specific st- t changes, ABNL EKG; unchanged compare with old ekg 04/201705/27/17 12:43 Interpreted by ED Physician: Yes Type: 12 lead EKG Comparison: Similar to previous EKG - Medication Orders Current Medication Orders: Discontinued Medications Aspirin (Aspirin) 325 mg PO STAT STA Stop: 05/27/17 10:39 Last Admin: 05/27/17 10:54 Dose: 325 mg Nitroglycerin (Nitro-Bid 2% Oint) 1 ea TOP STAT STA Stop: 05/27/17 10:39 Last Admin: 05/27/17 10:54 Dose: 1 ea - Scribe Statement The provider has reviewed the documentation as recorded by the Joe Manzano Provider Scribe Attestation: All medical record entries made by the Joe were at my direction and personally dictated by me. I have reviewed the chart and agree that the record accurately reflects my personal performance of the history, physical exam, medical decision making, and the department course for this patient. I have also personally directed, reviewed, and agree with the discharge instructions and disposition. Disposition/Present on Arrival - Present on Arrival Any Indicators Present on Arrival: No History of DVT/PE: No History of Uncontrolled Diabetes: No Urinary Catheter: No History of Decub. Ulcer: No History Surgical Site Infection Following: None - Disposition Have Diagnosis and Disposition been Completed?: Yes Diagnosis: Cavitary lesion of lung, Chest pain with moderate risk for cardiac etiology, Pleural effusion Disposition: HOSPITALIZED Disposition Time: 13:25 Isolation: Droplet Patient Plan: Admission Patient Problems: Current Active Problems Problem Status Onset Cavitary lesion of lung Acute Chest pain with moderate risk for cardiac etiology Acute Pleural effusion Acute Condition: STABLE Discharge Instructions (ExitCare): Chest Pain (ED) Referrals: Avinash Stevens [Primary Care Provider] - Follow up with primary Forms: [employer] (Ugandan)
[2017-05-27 10:59] LABS: BASO # 0.02 K/mm3 (0.0-2.0); BASO % 0.1 % (0.0-3.0); EOS # 0.1 (0.0-0.7); GRAN # 10.5 (1.4-6.5); GRAN % 78.4 % (50.0-68.0); HEMOGLOBIN 11.4 g/dL (14.0-18.0); LYMPH # 1.5 (1.2-3.4); LYMPH % 11.2 % (22.0-35.0); MEAN CELL VOLUME 70.9 fl (80.0-105.0); MEAN CORPUSCULAR HGB CONC 32.5 g/dl (31.0-37.0); MEAN PLATELET VOLUME 9.5 fl (7.0-11.0); MONO # 1.3 (0.1-0.6); MONO % 9.3 % (1.0-6.0); RBC 4.95 10^6/uL (3.5-6.1); RED CELL DISTRIBUTION WIDTH 14.1 % (11.5-14.5); WHITE BLOOD COUNT 13.4 10^3/ul (4.5-11.0)
[2017-05-27] MEDS ORDERED: Iohexol 350 MG/100 ML VIAL ONE (11:07)
[2017-05-27 11:30] LABS: ALB/GLOB RATIO 0.9 (1.1-1.8); ALBUMIN 3.5 g/dL (3.0-4.8); ALT/SGPT 36 U/L (7-56); AST/SGOT 35 U/L (17-59); BLOOD UREA NITROGEN 13 mg/dL (7-21); CALCIUM 9.1 mg/dL (8.4-10.5); GFR AFRICAN-AMERICAN > 60; GFR NON-AFRICAN AMERICAN > 60; LIPASE 85 U/L (23-300); MAGNESIUM 2.4 mg/dL (1.7-2.2)
[2017-05-27 11:46] LABS: TROPONIN I < 0.01 ng/mL
[2017-05-27 11:48] LABS: B-TYPE NATRIURETIC PEPTIDE 44.7 pg/mL (0-450)
[2017-05-27 11:52] LABS: PH,URINE 6.5 (4.7-8.0); URINE BILIRUBIN NEGATIVE (NEGATIVE); URINE BLOOD NEGATIVE (NEGATIVE); URINE GLUCOSE (UA) NEGATIVE (NEGATIVE); URINE LEUKOCYTE ESTERASE NEGATIVE Leu/uL (NEGATIVE); URINE NITRATE NEGATIVE (NEGATIVE); URINE PROTEIN NEGATIVE mg/dL (<30 mg/dL); URINE UROBILINOGEN 0.2 E.U./dL (<1 E.U./dL)
[2017-05-27 11:57] LABS: URINE APPEARANCE CLEAR (CLEAR); URINE COLOR YELLOW (YELLOW)
--- NOTE | 2017-05-27 12:45 | CT ---
CTA chest PE protocol Indication: hx of prostate CA, sudden left sided chest pain Technique: Contiguous axial images were obtained through the chest with intravenous contrast enhancement. Sagittal and coronal reconstructions were generated and reviewed. This CT exam was performed using 1 or more of the following dose reduction techniques: Automated exposure control, adjustment of the MAA and/or kV according to patient size, and/or use of iterative reconstruction technique. IV Contrast: 100 mL Omnipaque 350 Radiation dose (DLP): 470.06 MGy-cm. Comparison: Chest x-ray performed same day and 05/20/17 Findings: Visualized portions of the inferior thyroid gland demonstrates 5 mm left lower pole hypodense nodule. The mediastinal and hilar vascular structures appear within normal limits. The heart appears within normal limits of size. Sub cm mediastinal lymph nodes, nonspecific. No large central or segmental pulmonary embolus evident. Lingular consolidation with central lucencies and fluid level compatible with necrosis/cavitation. Bibasilar atelectasis/ infiltrates. Small left pleural effusion and associated consolidation. No pleural effusion. Small to moderate hiatal hernia/distal esophageal wall thickening. Limited visualized portions of the upper abdomen: Partially imaged hepatomegaly. Too small to characterize 7 mm right hepatic lobe hypodensity. Partially imaged 4.8 cm left renal hypodense lesion measures approximately 7 HU consistent with a cyst. Mild degenerative changes. Impression: No large central or segmental pulmonary embolus evident. Lingular consolidation with central lucencies and fluid level compatible with necrosis/cavitation. Considerations for cavitation include malignant neoplasm versus infection (such as tuberculosis or fungal infection). Bibasilar atelectasis/ infiltrates. Small left pleural effusion and associated consolidation. 5 mm left lower pole hypodense nodule. Small to moderate hiatal hernia/distal esophageal wall thickening. Limited visualized portions of the upper abdomen: Partially imaged hepatomegaly. Too small to characterize 7 mm right hepatic lobe hypodensity. Partially imaged 4.8 cm left renal hypodense lesion measures approximately 7 HU consistent with a cyst.
--- NOTE | 2017-05-27 13:00 | RAD ---
HISTORY: chest pain COMPARISON: 05/20/2017 TECHNIQUE: Chest PA and lateral FINDINGS: LUNGS: There is a persistent infiltrate in the lingular segment of the left upper lobe. There is no change PLEURA: No significant pleural effusion identified. No pneumothorax apparent. CARDIOVASCULAR: Normal. OSSEOUS STRUCTURES: No significant abnormalities. VISUALIZED UPPER ABDOMEN: Normal. OTHER FINDINGS: None. IMPRESSION: There is a persistent infiltrate in the lingular segment of the left upper lobe. There is no change
[2017-05-27] MEDS ORDERED: cefTRIAXone 1 gm 1 GM/100 ML BAG IVPB STA (13:18)
[2017-05-27] MEDS ORDERED: Azithromycin 500MG/NS 250ml 500 MG/250 ML BAG IVPB STA (13:18)
[2017-05-27] MEDS ORDERED: Nitroglycerin 2% Ointment Foilpak UD TOP PRN (14:44)
[2017-05-27] MEDS ORDERED: Sodium Chloride 0.45% 1,000 ML IV SCH (14:45)
[2017-05-27] MEDS ORDERED: Influenza Vaccine 60 mcg/0.5 mL SYR (4YR UP) IM ONE (19:30)
[2017-05-27] MEDS ORDERED: Pneumococcal 23-Valent Vaccine IM ONE (19:30)
[2017-05-27] MEDS ORDERED: guaiFENesin DM 100 mg-10 mg/5 ml UD PO PRN (19:41)
[2017-05-27] MEDS ORDERED: Levalbuterol 0.63 MG/3 ML Inhal Soln UD IH PRN (19:41)
[2017-05-27] MEDS ORDERED: Vancomycin 1 g Inj IVPB SCH (22:00)
[2017-05-27] MEDS: Vancomycin 1gm in NS 250ml 1 GM/250 ML BAG IVPB SCH (22:03)
[2017-05-27] MEDS: Meropenem 1g/NS 100mL IVPB 1 GM/100 ML PIGGYBACK IVPB SCH (22:03)
[2017-05-28] MEDS: Albuterol-Ipratrop 3 mg / 0.5 (3 ml) UD IH SCH ×3 (02:09→13:38)
--- NOTE | 2017-05-28 03:44 | HP ---
DATE; 05/27/2017. HISTORY OF PRESENT ILLNESS: This 62-year-old male was examined in the isolation room in the emergency room. This case was reviewed in detail with the patient, his son Phoenix at the bedside and Dr. Gilbert Mcguire, the emergency room physician. The patient presented today to the [facility] ER for evaluation of left chest discomfort. He described it as a stabbing sensation, which awoke him from a sleep and caused him to have slight shortness of breath in the setting of a chest x-ray that showed a persistent left lingular infiltrate that was present on a recent hospital admission from 2017. The patient states he has had no fever, chills, hemoptysis, but did describe a yellowish sputum production, and stated that when he was discharged from [facility] last week, he was given a prescription for oral Levaquin which he did complete. At present, the patient is lying in the emergency room wearing a respiratory mask. He is alert, oriented, and denying any active chest pain. His son Phoenix is acting as an cat scanner operator. PAST MEDICAL HISTORY: The patient states past medical history is significant for chronic hypertension, peptic ulcer disease with GERD, asthma, hyperlipidemia and history of prostate cancer surgery in 2005. He states he follows with his urologist at [facility], was last seen in February and is currently on no chemotherapy or hormonal agents for the prostate cancer. SOCIAL HISTORY: On further questioning of the patient, he is a social drinker, nonsmoker, and non IV drug misuser. REVIEW OF SYSTEMS: CONSTITUTIONAL: Denies fever or shaking chills. HEAD: Denies headache or seizure. EYES: No change in visual acuity. EARS: No hearing loss. THROAT: No swallowing difficulty. NECK: No stiffness. CARDIAC: Chronic hypertension and hyperlipidemia. PULMONARY: As per HPI. GASTROINTESTINAL: GERD. GENITOURINARY: Prostate cancer. SKIN: No rash. ENDOCRINE: Hyperlipidemia. NEUROLOGICAL: No stroke. VASCULAR: No claudication. PSYCHOLOGICAL: Denied depression or anxiety. FAMILY HISTORY: Is not applicable. ALLERGIES: HE HAS NO KNOWN ALLERGIES TO MEDICATIONS. MEDICATIONS: Outpatient medications included Norvasc, Prilosec, Singulair, lisinopril, hydrochlorothiazide and Lipitor. PHYSICAL EXAMINATION: GENERAL: The patient was alert and oriented x3, in a normal sinus rhythm on the case monitor. VITAL SIGNS: Temperature showed 97.8, respirations 18, pulse 60, blood pressure 117/70, with a pulse ox of 96% in room air. HEENT: Head normocephalic, atraumatic. Eyes, no icterus. Ears, clear. Throat, noninjected. NECK: Supple. HEART: Regular S1 and S2. LUNGS: With occasional rhonchi in the left posterior lung field that cleared with coughing. ABDOMEN: Soft. EXTREMITIES: No edema. SKIN: Without rash. NEUROLOGICAL: Grossly intact. PSYCHOLOGICAL: Alert and oriented x3. VASCULAR: Legs warm to touch. LABORATORY DATA: White count 13,400, hemoglobin 11.4, hematocrit 35.1, platelets 356,000. The patient had 78.4 granulocytes on differential. Sodium 139, K 3.9, chloride 104, bicarb 26, BUN 13, creatinine 0.8, random blood sugar 113. Magnesium normal, 2.4. Bilirubin 0.6, AST 35, ALT 36, alk phos 67. CPK normal, 198. Troponin less than 0.01. Urinalysis was unremarkable. EKG showed normal sinus rhythm with nonspecific ST-T wave changes. Chest x-ray was reviewed. It showed a persistent infiltrate in the lingular segment of the left upper lobe. There was no pneumothorax, no pleural effusion noted. Chest CT was reviewed, no large central or segmental pulmonary embolism was evident. There was lingular consolidation with a central lucency and a fluid level compatible with necrosis versus cavitation, basilar atelectasis versus infiltrates were noted, and he had a small left pleural effusion. IMPRESSION: A 62-year-old male, recently hospitalized on prior admission for left lung pneumonia, now who re-presents with cough, CT findings as above, and persistent left lingular infiltrate, with a past medical history of prostate cancer, chronic hypertension, peptic ulcer disease with gastroesophageal reflux disease and hyperlipidemia. PLAN: As discussed with the patient's son, emergency room physician, will be to place this patient in respiratory isolation and he will have a consultation with Dr. Serrato from pulmonary regarding his shortness of breath, chest discomfort and abnormal CT of the chest findings. I have ordered blood and urine cultures as well as sputum cultures, and sputum for AFB to be done stat. on this patient. He will be given 0.45 saline at 80 mL per hour. He is to receive Lipitor 10 mg p.o. at dinnertime, nitroglycerin 1 inch to chest wall q. 4 hours p.r.n. accelerated hypertension or chest pain. He will receive Norvasc 10 mg p.o. daily, Pepcid 40 mg p.o. at bedtime, Robitussin DM 5 mL p.o. q. 4 hours p.r.n. cough, Rocephin 1 g IV q. 24, Zithromax 500 mg IV q. 24, Singulair 10 mg p.o. daily, Tylenol 650 mg p.o. q. 6 hours p.r.n. pain or temperature greater than 101, Xopenex inhalational therapy 0.63 mg q. 6 hours p.r.n. shortness of breath, Zestril 10 mg p.o. daily and Zofran 4 mg IV q. 6 hours p.r.n. nausea and vomiting. He is ordered to have a heart-healthy diet. He will remain in respiratory isolation. I have asked the nursing staff to place him on the case monitor, and additional workup and diagnostic testing will be entertained based on his clinical progress. Greater than 75 minutes was spent in the care, review of x-rays, labs, medication and discussion of this patient's case with family, emergency room physician, nursing staff. All questions were answered Rebekah Banerjee MD MTDPhilip
--- NOTE | 2017-05-28 04:48 | CON ---
DATE: 05/27/2017 PULMONARY CONSULTATION REFERRING PHYSICIAN: Dr. Sandhu. REASON FOR CONSULTATION: Cough, shortness of breath, lung abscess. HISTORY OF PRESENT ILLNESS: This is a 62-year-old gentleman with known history of asthma, also has hypertension and hyperlipidemia, who just recently about a week or so ago discharged from the hospital after treating community-acquired pneumonia. He was sent home with [facility], but comes back to the hospital emergency room with left-sided pleuritic pain. Denying any nausea, vomiting, diarrhea. Has a cough with blood-tinged sputum. Denying any night sweats. Appetite is okay. Denying any sick contact. No headache. No recent travel. According to the patient, he had a PPD done about 20+ years ago, which was negative. No leg pain or leg swelling. PAST MEDICAL HISTORY: Hypertension, asthma, hyperlipidemia, status post community-acquired pneumonia diagnosed about a week ago, also has a history of prostate cancer diagnosed in 2005. SOCIAL HISTORY: Never smoked. Denied any alcohol use. FAMILY HISTORY: No significant cardiopulmonary disease reported. ALLERGIES: None known. MEDICATIONS: He is on Zithromax 500 mg daily, Lipitor 10 mg daily, Norvasc 10 mg daily, Pepcid 40 mg daily, Robitussin 5 mL q.4h. p.r.n., Rocephin 1 g IV daily, Singulair 10 mg daily, IV fluid half-normal saline 80 mL/hour, Tylenol p.r.n., Xopenex inhaled q.6h., Zestril 10 mg daily, Zofran p.r.n. basis. REVIEW OF SYSTEMS: No headache, no rhinitis. Had a fever, left-sided pleuritic pain, cough, hemoptysis. No nausea, vomiting, diarrhea, leg pain or leg swelling. No recent weight loss, no night sweats. PHYSICAL EXAMINATION: GENERAL: Lying in the bed, no acute distress. VITAL SIGNS: Temperature is 98, heart rate is 60, respiratory rate is 18, blood pressure 117/70, pulse ox 95% on 2 liters nasal cannula. HEENT: Moist mucous membranes. No ulcer or thrush noted. LUNGS: Has few scattered rhonchi. HEART: S1, S2. ABDOMEN: Soft, nontender, no organomegaly. EXTREMITIES: No edema. NEUROLOGIC: Awake, alert, and follows simple commands. LABORATORY DATA: Shows hemoglobin 11.4, hematocrit 35.1, WBC 13.4. Sodium 139, potassium 3.9, chloride 104, bicarbonate 26, BUN 13, creatinine 0.8, glucose 113, calcium 9.1, magnesium 2.4. AST 35, ALT 36, alk phos is 67. Troponin less than 0.01. ProBNP 45, albumin 3.5. Urinalysis is unremarkable. Had a blood culture done on 05/20/2017, which was negative. CT of the chest was done in ER, which shows no PE, has a lingular consolidation with central lucency and fluid level compatible with necrosis and cavitation, basilar atelectasis and infiltrates, small left pleural effusion associated with consolidation, has a 5-mm left lower pole hypodense nodule, has a hiatal hernia, esophageal wall thickening. There is also a renal cyst reported. IMPRESSION AND PLAN: Has a lingular dense infiltrate with a cavity, lung nodule, hypertension, hyperlipidemia, has chronic obstructive lung disease, failed treatment with Levaquin. We will discontinue Zithromax and Rocephin. The patient has been treated for atypical already. We will add imipenem with vancomycin, send sputum for culture and sensitivity, also send sputum for AFB. Also we will do a CT of the abdomen and pelvis. There is some history of prostate cancer in the past. We will send TB Gold test to PPD, keep in isolation, send sputum for AFB, inhaled bronchodilator. Followup CT scan to assure the stability of cavitary lesion. Thank you and we will follow with you. Ruperto Serrato MD
[2017-05-28] MEDS: Meropenem 1g/NS 100mL IVPB 1 GM/100 ML PIGGYBACK IVPB SCH ×3 (05:19→22:13)
[2017-05-28] MEDS: Vancomycin 1gm in NS 250ml 1 GM/250 ML BAG IVPB SCH ×2 (09:50→23:12)
[2017-05-28] MEDS ORDERED: Azithromycin 500 MG in Sodium Chloride 0.9% 250 ML IV SCH (10:00)
[2017-05-28] MEDS ORDERED: cefTRIAXone 1 gm 1 GM/100 ML BAG IVPB SCH (10:00)
[2017-05-28] MEDS ORDERED: Sodium Chloride 0.45% 1,000 ML IV SCH (14:40)
--- NOTE | 2017-05-29 02:00 | PN ---
DATE: 05/28/2017 PULMONARY PROGRESS NOTE REFERRING PHYSICIAN: Dr. Banerjee. SUBJECTIVE: He is lying in the bed at 45 degrees. Feels better. Decreased cough, decreased shortness of breath, decreased pleuritic pain. No nausea, no vomiting, no diarrhea. No leg pain, no leg swelling. PHYSICAL EXAMINATION GENERAL: In no acute distress. VITAL SIGNS: Temp 98, heart rate 69, respiratory rate is 20, blood pressure 120/85, pulse ox in 94% on nasal cannula. HEENT: Moist mucous membrane. No ulcer or thrush noted. NECK: Supple. No JVD. LUNGS: Has a fair air flow with few scattered rhonchi. HEART: S1 and S2. ABDOMEN: Soft, nontender, no organomegaly. EXTREMITIES: No edema. NEUROLOGICAL: Awake, alert. Follow simple commands. MEDICATIONS: He is on lactulose 20 gram p.o. daily p.r.n., Lipitor 10 mg daily, meropenem 1 gram IV q.8 hours, Nitro-Bid 2% q.4 hours p.r.n., Norvasc 10 mg daily, Pepcid 40 mg daily, Robitussin DM 5 mL q.4 hours p.r.n., Singulair 10 mg daily, half-normal saline 50 mL per hour, Tylenol p.r.n. basis, vancomycin 1 gram IV q.12 hours, Xopenex 0.63 q.6 hours p.r.n., Zestril 10 mg daily, Zofran p.r.n. basis. LABORATORY DATA: Shows sed rate is 60, C-reactive protein is over 15. Urine is unremarkable. MICROBIOLOGY: Blood cultures has been negative. No sputum culture or AFB smear so far available. IMPRESSION AND PLAN: Lingular dense infiltrate with cavity, lung nodule, hypertension, hyperlipidemia, chronic obstructive lung disease, failed treatment as outpatient on Levaquin, presently on broad spectrum antibiotic, covering healthcare associated organism on vancomycin and meropenem. Sputum culture and sensitivity is nothing available so far, been ordered since yesterday. Also AFB smear is ordered. Nothing is available so far. Clinically, he is much improved. Pain is better. Cough is better. I will continue both meropenem and vancomycin. Vancomycin trough level is also pending. TB gold test is sent. Continue bronchodilator. Gastric prophylaxis, deep vein thrombosis prophylaxis. Ruperto Serrato MD [facility] # [id number]
[2017-05-29] MEDS: Meropenem 1g/NS 100mL IVPB 1 GM/100 ML PIGGYBACK IVPB SCH ×3 (05:38→21:26)
[2017-05-29 08:24] LABS: HEMOGLOBIN 10.7 g/dL (14.0-18.0); MEAN CELL VOLUME 71.8 fl (80.0-105.0); MEAN CORPUSCULAR HEMOGLOBIN 22.5 pg (25.0-35.0); MEAN CORPUSCULAR HGB CONC 31.3 g/dl (31.0-37.0); MEAN PLATELET VOLUME 9.3 fl (7.0-11.0); RBC 4.76 10^6/uL (3.5-6.1); RED CELL DISTRIBUTION WIDTH 14.6 % (11.5-14.5); WHITE BLOOD COUNT 11.3 10^3/ul (4.5-11.0)
[2017-05-29 08:38] LABS: BLOOD UREA NITROGEN 10 mg/dL (7-21); GFR AFRICAN-AMERICAN > 60; GFR NON-AFRICAN AMERICAN > 60
[2017-05-29] MEDS: Vancomycin 1gm in NS 250ml 1 GM/250 ML BAG IVPB SCH ×2 (10:55→22:43)
[2017-05-29] MEDS: Enoxaparin 40 mg Syringe SC SCH (12:31)
[2017-05-29 16:45] LABS: T4 9.4 ug/dL (5.5-11.0)
[2017-05-29 17:40] LABS: IRON 48 ug/dL (45-180)
[2017-05-29 17:52] LABS: % IRON SATURATION 27 % (20-55); TOTAL IRON BINDING CAPACITY 178 ug/dL (261-462)
[2017-05-29 22:12] LABS: FOLATE 4.4 ng/mL
--- NOTE | 2017-05-30 00:15 | PN ---
DATE: 05/29/2017 PULMONARY PROGRESS NOTE REFERRING PHYSICIAN: Rebekah Banerjee MD. SUBJECTIVE: He is ambulating in the room, feels better. Still has mild pleuritic pain. Has a cough. No more hemoptysis. No nausea. No vomiting, diarrhea, leg pain, leg swelling. OBJECTIVE: GENERAL: In no acute distress. VITAL SIGNS: Temp is 98, heart rate is 66, respiratory rate is 20, blood pressure 111/72, pulse ox 95% on room air. HEENT: Moist mucous membrane. No ulcer or thrush noted. NECK: Supple. No JVD. LUNGS: Fair airflow with rhonchi. HEART: S1 and S2. ABDOMEN: Soft and nontender. No organomegaly. EXTREMITIES: No edema. NEUROLOGICAL: Awake and alert. Follows simple command. LABORATORY DATA: Shows hemoglobin 10.7, hematocrit 34.2, WBC 11.3, platelet count is 395. Sodium 142, potassium 4.1, chloride 108, bicarbonate 26, BUN 10, creatinine 0.8, glucose 100, calcium 9.0, iron is 48, thyroxine T4 is 9.4, TSH is 0.95. Urinalysis is unremarkable. Microbiology: Blood culture has been negative. Urine culture, there is no growth. Sputum for AFB, no acid-fast bacilli seen, 1/3 stains. MEDICATIONS: He is on lactulose p.r.n. basis, Lipitor 10 mg daily, Lovenox 40 mg daily, he is on meropenem 1 g IV q. 8 hours, Nitro-Bid 2% q. 4 hours, Norvasc 10 mg daily, Pepcid 40 mg daily, Robitussin DM 5 mL q. 4 hours p.r.n., Singulair 10 mg daily, Tylenol p.r.n., vancomycin 1 g IV q. 12 hours, Xopenex inhaled q. 6 hours p.r.n., Zestril 10 mg daily, Zofran 4 mg daily. IMPRESSION AND PLAN: Lingular dense infiltrate with cavity, lung nodule, hypertension, hyperlipidemia, chronic obstructive lung disease, failed outpatient treatment. Continue broad-spectrum antibiotics. Continue bronchodilator. Gastric prophylaxis. Awaiting for another 2 sets of acid-fast bacillus smears. We will need repeat CT of the chest to assure the stability of infiltrate. TB Gold test report is pending. Thank you and we will follow with you. Ruperto Serrato MD
--- NOTE | 2017-05-30 03:01 | PN ---
DATE; 05/29/2017. SUBJECTIVE: This 62-year-old male was examined on the Cardiac pérez in the presence of his and nursing. 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 The patient continues with low-grade fevers and there have been no reports of chills nor hemoptysis. He remains in respiratory isolation and is starting to produce sputum, which I have asked the nursing staff to send for culture, sensitivity and AFB. PHYSICAL EXAMINATION: VITAL SIGNS: Monitor normal sinus rhythm. Temperature 99.2 earlier, presently 98.0. Respirations 20, pulse 60, blood pressure 116/84, pulse ox 95% on room air. Approximately 1050 mL urine output yesterday. HEENT: Head; normocephalic, atraumatic. Eyes, no icterus. Ears clear. Throat noninjected. NECK: Supple. HEART: Regular S1, S2. LUNGS: Occasional rhonchi that clears with coughing. ABDOMEN: Soft. EXTREMITIES: No edema. SKIN: Without rash. NEUROLOGICAL: Intact. PSYCHOLOGICAL: Alert and oriented x3. VASCULAR: Legs warm to touch. LABORATORY DATA: Sputum for AFB stain, no acid-fast bacilli was seen. Blood cultures no growth at 24 hours. Urine culture negative. White count 11,300, previously 13,400; hemoglobin 10.7; hematocrit 34.2; platelets 395,000. Sodium 142, K 4.1, chloride 108, bicarb 26, BUN of 10, creatinine 0.8, random blood sugar 100. C-reactive protein greater than 15, normal is less than 3. All liver function testings were normal including bilirubin 0.6, AST 35, ALT 36, alk phos 67. Urinalysis unremarkable. Chest x-ray showed an infiltrate in the left lung upper lobe lingular area and CT of the chest shows lingular consolidation with a central lucency air-fluid level compatible with necrosis versus cavitation. IMPRESSION: A 62-year-old male with left lung pneumonia, negative acid-fast bacilli smear, hyperlipidemia, hypertension, peptic ulcer disease with gastroesophageal reflux disease, history of asthma, chronic obstructive pulmonary disease, and prostate cancer in the past. PLAN: As discussed with the patient, family and nursing at bedside, will be to maintain this patient on respiratory isolation. He continues on heart-healthy diet and medications including Zestril 10 mg p.o. daily, Xopenex inhalational therapy q.6 hours p.r.n., vancomycin 1 g IV q.12, Singulair 10 mg p.o. daily, Robitussin DM 5 mL p.o. q.4 hours p.r.n. cough, Pepcid 40 mg p.o. at bedtime, Norvasc 10 mg p.o. daily, nitroglycerin 1 inch to chest wall q.4 hours p.r.n. accelerated hypertension if systolic blood pressure greater than 160 or diastolic blood pressure greater than 100, meropenem 1 g IV q.8 hours, Lovenox 40 mg subcu daily, Lipitor 10 mg p.o. at dinnertime, and lactulose 20 g p.o. daily p.r.n. obstipation. The patient is ordered to have a QuantiFERON TB Gold testing to rule out TB. Additional testing, medication and workup will be outlined by Dr. Serrato based on the patient's clinical progress and all of the above was reviewed in detail with the patient, family and nursing at bedside. All questions were answered. Rebekah Banerjee MD MTDPhilip
[2017-05-30] MEDS: Meropenem 1g/NS 100mL IVPB 1 GM/100 ML PIGGYBACK IVPB SCH ×3 (06:00→22:21)
--- NOTE | 2017-05-30 08:24 | PN ---
DATE: 05/28/2017 SUBJECTIVE: This 62-year-old male was examined on the cardiac pérez. He is in respiratory isolation, and the interview was done with his nurse, Rima Castorena, registered nurse present and translating. The patient remains in a normal sinus rhythm on the monitoring manager. He denies any fever, chills, chest pain or hemoptysis. PHYSICAL EXAMINATION: VITAL SIGNS: At present, his temperature is 98.9, respirations 20, pulse 95, blood pressure 112/61, with a pulse ox of 95% on room air. Urine output was 1040 mL earlier this morning. HEENT: Head is normocephalic, atraumatic. Eyes, no icterus. Ears, clear. Throat, noninjected. NECK: Supple. HEART: Regular S1 and S2. LUNGS: With occasional rhonchi at the left posterior lung wood. ABDOMEN: Soft. EXTREMITIES: No edema. SKIN: Without rash. NEUROLOGICAL: Intact. PSYCHOLOGICAL: Alert. VASCULAR: Legs warm to touch. LABORATORY DATA: White count 13,400, hemoglobin 11.4, hematocrit 35.1, platelets 356,000. Sodium 139, K 3.9, chloride 104, bicarb 26, BUN 13, creatinine 0.8, random blood sugar 113, bilirubin 0.6, AST 35, ALT 36, alk phos 67. C-reactive protein greater than 15. Troponin less than 0.01. BNP 44.7. Urinalysis unremarkable. Chest CT consistent with a lingular consolidation and in his left lung with central lucency and fluid level compatible with necrosis versus cavitation. A small left pleural effusion was also noted. IMPRESSION: A 62-year-old male, readmitted after treatment for community-acquired pneumonia with comorbidities as outlined who was readmitted with left sided pleuritic pain, abnormal chest CT, with history of prostate cancer, hypertension, asthma, hyperlipidemia, status post community-acquired pneumonia approximately 1 week ago in a gentleman who has never smoked. PLAN: As discussed with Dr. Serrato from Pulmonary, will be to continue meropenem and IV vancomycin while awaiting a sputum sample for culture, sensitivity and AFB. He has been ordered to have a TB gold test for PPD and also to be kept in isolation. I have asked the nursing staff to ask Respiratory to help the patient obtain a sputum for AFB. He continues on an inhaled bronchodilator, and will have a followup CT as directed by Dr. Serrato. The patient is ordered to remain in respiratory isolation. Basic metabolic panel and CBC have been ordered for the a.m. All of the above was discussed in detail, and greater than 35 minutes was spent in the care management, review of x-rays, labs, medication and orders with the patient and nursing today. All questions were answered. Rebekah Banerjee MD MTDPhilip
[2017-05-30] MEDS: Enoxaparin 40 mg Syringe SC SCH (11:16)
[2017-05-30] MEDS: Vancomycin 1gm in NS 250ml 1 GM/250 ML BAG IVPB SCH ×2 (11:16→22:21)
--- NOTE | 2017-05-30 11:33 | US ---
HISTORY: compare to chest ct TECHNIQUE: Sonographic evaluation of the thyroid gland. COMPARISON: FINDINGS: RIGHT LOBE: Measures 4.6 x 1.3 cm. 1.5 cm nonspecific hypoechoic nodule in right lower pole. Normal echotexture and flow. LEFT LOBE: Measures 4.1 x 1.7 cm. Normal echotexture and flow. Nodules: Multiple nonspecific cysts and nodules the largest in the left lobe measuring .8 cm in the interpolar region. ISTHMUS: Measures cm. Normal echotexture and flow. Nodules: None OTHER FINDINGS: None . IMPRESSION: 1.5 cm nonspecific hypoechoic nodule in right lower pole. Multiple nonspecific cysts and nodules the largest in the left lobe measuring .8 cm in the interpolar region.
--- NOTE | 2017-05-30 14:44 | PN ---
DATE: 05/30/2017 PULMONARY PROGRESS NOTE REFERRING PHYSICIAN: Rebekah Banerjee MD. SUBJECTIVE: The patient is ambulating in the room. Night was unremarkable. Feels better. Decreased cough. Decreased shortness of breath. No more hemoptysis. Still has a mild left-sided pleuritic pain. No nausea. No vomiting. No diarrhea. No leg pain or leg swelling. PHYSICAL EXAMINATION: GENERAL: In no acute distress. VITAL SIGNS: Temperature is 99, heart rate is 65, respiratory rate is 20, blood pressure 128/73, pulse ox 97% on room air. HEENT: Moist mucous membrane. Crowded airway. NECK: Supple. No JVD. LUNGS: Have scattered rhonchi. HEART: S1 and S2. ABDOMEN: Soft and nontender. No organomegaly. EXTREMITIES: There is no edema. NEUROLOGIC: Awake and alert. Follows simple command. MEDICATIONS: He is on lactulose 20 mg daily, Lipitor 10 mg daily, Lovenox 40 mg daily, meropenem 1 g IV q. 8 hours, Nitro-Bid 2% q. 4 hour p.r.n., Norvasc 10 mg daily, Pepcid 40 mg daily, Robitussin 5 mL q. 4 hours p.r.n., Singulair 10 mg daily, Tylenol p.r.n., vancomycin 1 g IV q. 12 hours, Xopenex 0.63 q. 6 hours p.r.n., Zestril 10 mg daily, and Zofran on a p.r.n. basis. LABORATORY DATA: Reviewed and noted that vitamin B12 is only 237. Microbiology, no new specimen available, only one, the AFB has been negative so far. IMPRESSION AND PLAN: Lingular dense infiltrate with a cavity, status post hemoptysis, hypertension, hyperlipidemia, chronic obstructive lung disease, failed outpatient treatment. Continue broad-spectrum antibiotics, bronchodilator, gastric prophylaxis, deep vein thrombosis prophylaxis. Spoke to nursing staff and requested some more sputum specimen for AFB smear. We will repeat CAT scan in a few days to assure the stability of cavitary lesion. Thank you and we will followup with you. Ruperto Serrato MD [facility] # [id number]
--- NOTE | 2017-05-30 14:47 | CARD ---
APPROVED REPORT EKG Measurement Heart [id number] <Conclusion> Normal sinus rhythm Cannot rule out Inferior infarct, age undetermined Abnormal ECG
--- NOTE | 2017-05-30 16:08 | PN ---
DATE: 05/30/2017 SUBJECTIVE: This 62-year-old male remains hospitalized with left upper lung pneumonia and is currently receiving IV meropenem and IV vancomycin and remains in respiratory isolation. AFB smear x1 is negative for TB and the patient is running low grade temperatures. He remains in a normal sinus rhythm on the glove stitcher and denies hemoptysis. PHYSICAL EXAMINATION: VITAL SIGNS: Temperature 99, respirations 20, pulse 64, blood pressure 128/73, and pulse ox 97% room air. HEENT: Head normocephalic, atraumatic. Eyes: No icterus. Ears: Clear. Throat: Noninjected. NECK: Supple. HEART; RRR. LUNGS; Occasional rhonchi at the left posterior lung field. ABDOMEN: Soft. EXTREMITIES: No edema. SKIN: Without rash. NEUROLOGICAL: Intact. PSYCHOLOGICAL: Alert. VASCULAR: Legs warm to touch. LABORATORY DATA: White count 11,300, hemoglobin 10.7, hematocrit 34.2, platelets 395,000. Sodium 142, K 4.1, chloride 108, bicarb 26, BUN 10, creatinine 0.8, random blood sugar 100. Iron level 48, TIBC 178, percent saturation 27, ferritin 267. Vitamin B12 of 237. Folic acid 4.4. Procalcitonin level less than 0.05. T4 of 9.4, TSH 0.95. Urinalysis unremarkable. IMPRESSION: A 62-year-old male with left upper lung pneumonia with necrosis versus cavitary changes on CT of the lung with comorbidities of intermittent obstipation, hyperlipidemia, anemia of chronic disease, peptic ulcer disease with gastroesophageal reflux disease, history of asthma, and newly noted low levels of vitamin B12. PLAN: As discussed with the patient, nursing, and family will be to maintain the patient in respiratory isolation while continuing heart-healthy soft bland diet and medication including Zestril 10 mg p.o. daily, Xopenex inhalational therapy q.6h., vitamin B12 1000 mcg IM x1 dose, vancomycin 1 g IV q. 12, meropenem 1 g IV q. 8., Singulair 10 mg p.o. daily, Robitussin DM 5 mL p.o. q.4h. p.r.n. cough, Pepcid 40 mg p.o. at bedtime, Norvasc 10 mg p.o. daily, nitroglycerin 1 inch to chest wall q.4h. p.r.n. accelerated hypertension if systolic blood pressure greater than 160 or diastolic blood pressure greater than 100, Lovenox 40 mg subcu daily, Lipitor 10 mg p.o. daily, and lactulose 20 g p.o. daily p.r.n. obstipation. Of note, blood and urine cultures are negative to date. AFB smear is negative x1. Consultation with Dr. Arteaga from Infectious Disease will be obtained to outline future intervention and duration of therapy. QuantiFERON TB Gold antibody is pending at present. All of the above was reviewed in detail with the patient, nursing, and family. All questions were answered. Rebekah Banerjee MD MTDPhilip
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
[2017-05-31] MEDS: Meropenem 1g/NS 100mL IVPB 1 GM/100 ML PIGGYBACK IVPB SCH ×3 (05:22→22:46)
[2017-05-31 07:18] LABS: HEMOGLOBIN 10.8 g/dL (14.0-18.0); MEAN CELL VOLUME 71.6 fl (80.0-105.0); MEAN CORPUSCULAR HEMOGLOBIN 22.2 pg (25.0-35.0); MEAN PLATELET VOLUME 9.5 fl (7.0-11.0); RBC 4.86 10^6/uL (3.5-6.1); RED CELL DISTRIBUTION WIDTH 14.5 % (11.5-14.5); WHITE BLOOD COUNT 10.6 10^3/ul (4.5-11.0)
[2017-05-31 07:39] LABS: BLOOD UREA NITROGEN 9 mg/dL (7-21); CALCIUM 9.2 mg/dL (8.4-10.5); GFR AFRICAN-AMERICAN > 60; GFR NON-AFRICAN AMERICAN > 60
[2017-05-31] MEDS: Enoxaparin 40 mg Syringe SC SCH (11:22)
[2017-05-31] MEDS: Vancomycin 1gm in NS 250ml 1 GM/250 ML BAG IVPB SCH ×2 (11:23→22:46)
--- NOTE | 2017-05-31 17:51 | CP.PCM.PN ---
Subjective - Date & Time of Evaluation Date of Evaluation: 05/31/17 Time of Evaluation: 16:30 - Subjective Subjective: Infectious Disease Follow Up: May 31, 2017 62 yo male with initial presentation for left chest discomfort and stabbing sensation. CT scan showing lingular consolidation with central lucencies and fluid levels suspicious for cavitation. Quantiferon sent. Only one AFB sent so far. Two AFB was negative. Patient currently in isolation room. He describes cough productive of yellow sputum. [place] [facility] [place] with Leva[place]. He completed that course as an outpatient. There is a report of hemoptysis as an outpatient. Cultures negative to date. Objective - Vital Signs/Intake and Output Vital Signs (last 24 hours): Temp Pulse Resp BP Pulse Ox 97.8 F 60 20 111/71 94 L 05/31/17 08:18 05/31/17 11:22 05/31/17 08:18 05/31/17 11:22 05/31/17 08:18 Intake and Output: 05/31/17 05/31/17 06:59 18:59 Intake Total 920 240 Output Total 250 Balance 920 -10 - Medications Medications: Current Medications Acetaminophen (Tylenol 325mg Tab) 650 mg PO Q6H PRN PRN Reason: Fever >100.4 F Amlodipine Besylate (Norvasc) 10 mg PO DAILY [facility] Last Admin: 05/31/17 11:22 Dose: 10 mg Atorvastatin Calcium (Lipitor) 10 mg PO DIN [facility] Last Admin: 05/30/17 18:02 Dose: 10 mg Cyanocobalamin (Vitamin B12 1000 Mcg Tab) 1,000 mcg PO DAILY [facility] Last Admin: 05/31/17 11:23 Dose: 1,000 mcg Enoxaparin Sodium (Lovenox) 40 mg SC DAILY NAS PRN Reason: Protocol Last Admin: 05/31/17 11:22 Dose: 40 mg Famotidine (Pepcid) 40 mg PO HS [facility] Last Admin: 05/30/17 22:19 Dose: 40 mg Guaifenesin/Dextromethorphan (Robitussin Dm) 5 ml PO Q4H PRN PRN Reason: Cough Last Admin: 05/29/17 12:30 Dose: 5 ml Meropenem/Sodium Chloride (Meropenem 1g/Ns 100ml Ivpb) 1 gm in 100 mls @ 100 mls/hr IVPB Q8 [facility] PRN Reason: Protocol Last Admin: 05/31/17 15:33 Dose: 100 mls/hr Vancomycin HCl (Vancomycin 1gm) 1 gm in 250 mls @ 250 mls/hr IVPB Q12 [facility] Last Admin: 05/31/17 11:23 Dose: 250 mls/hr Lactulose (Enulose) 20 gm PO DAILY PRN PRN Reason: Constipation Levalbuterol HCl (Xopenex) 0.63 mg IH [id number] PRN PRN Reason: Shortness of Breath Last Admin: 05/30/17 08:22 Dose: 0.63 mg Lisinopril (Zestril) 10 mg PO DAILY [facility] Last Admin: 05/31/17 11:22 Dose: 10 mg Montelukast Sodium (Singulair) 10 mg PO DAILY [facility] Last Admin: 05/31/17 11:23 Dose: 10 mg Nitroglycerin (Nitro-Bid 2% Oint) 1 ea TOP Q4H PRN PRN Reason: accelerated hypertension Ondansetron HCl (Zofran Inj) 4 mg IVP Q6H PRN PRN Reason: Nausea/Vomiting - Labs Labs: 05/31/17 06:30 05/31/17 06:30 - Constitutional Appears: Non-toxic, No Acute Distress, Chronically Ill - Head Exam Head Exam: ATRAUMATIC, NORMOCEPHALIC - Eye Exam Eye Exam: EOMI, PERRL Pupil Exam: NORMAL ACCOMODATION, PERRL - ENT Exam ENT Exam: Mucous Membranes Moist, Normal External Ear Exam, TM's Normal Bilaterally - Respiratory Exam Respiratory Exam: Decreased Breath Sounds, NORMAL BREATHING PATTERN. absent: Rales, Rhonchi, Wheezes Additional comments: decreased in left upper lung field. - Cardiovascular Exam Cardiovascular Exam: REGULAR RHYTHM, RRR, +S1, +S2 - GI/Abdominal Exam GI & Abdominal Exam: Soft, Normal Bowel Sounds. absent: Distended, Tenderness - Extremities Exam Extremities Exam: Full ROM, Normal Inspection - Neurological Exam Neurological Exam: Alert, Awake, CN II-XII Intact, Oriented x3 - Psychiatric Exam Psychiatric exam: Normal Affect, Normal Mood - Skin Skin Exam: Intact, Normal Color Assessment and Plan - Assessment and Plan (Free Text) Assessment: 62 yo male recently hospitalized for left lung pneumonia with questionable finding of a lingular cavitation versus abscess in the left lingular region. Evaluation for TB at this time. Two AFB was negative. Require two more. Check procalcitonin levels. Check Quantiferon (results are still pending). Cannot rule out gram positive bacterial etiology as well. Procalcitonin has been low on two checks during this hospitalization. Obtain 1 more AFB samples. Consider repeat CT scan this week. Mild leukocytosis. Obtain ASO. Cultures on this hospitalization appear to be negative so far. Patient does complain of left lower chest pain. Obtain Fungitell testing. Thank you for allowing me to participate in the care of the patient, we will follow with you.
--- NOTE | 2017-05-31 21:26 | PN ---
DATE: 05/31/2017 SUBJECTIVE: This 62-year-old male was examined in respiratory isolation in the presence of nurse, Rima Castorena, registered nurse. The patient, to date, has had one AFB smear that is negative for tuberculosis; two more are pending. He states that his pleuritic chest pain on admission that was 8/10, is now 2/10 and he denies any hemoptysis, fever, or chills. He is being treated with IV meropenem and IV vancomycin and is being followed by Dr. Arteaga from Infectious Disease and Dr. Serrato from Pulmonary. PHYSICAL EXAMINATION: GENERAL: He remains in a normal sinus rhythm on the quality assurance monitor. VITAL SIGNS: With a temperature of 97.8, respirations 20, pulse 55, blood pressure 111/71, and pulse ox 94%. HEENT: Head: Normocephalic, atraumatic. Eyes: No icterus. Ears: Clear. Throat: Noninjected. NECK: Supple. HEART: Regular S1, S2. LUNGS: Have rhonchi at the left posterior lung field. No rales. No wheezing. ABDOMEN: Soft. EXTREMITIES: No edema. SKIN: Without rash. NEUROLOGICAL: Intact. PSYCHOLOGICAL: Alert. VASCULAR: Legs, warm to touch. LABORATORY DATA: White count 10,600, hemoglobin 10.8, hematocrit 34.8, platelets 468,000. Sodium 142, K 4.0, chloride 106, bicarb 28, BUN 9, creatinine 0.8, random blood sugar 98. Iron 48, TIBC 178, percent saturation 27, ferritin 267. B12 of 237, folic acid 4.4. Procalcitonin level less than 0.05 x2 readings. Thyroid function normal, T4 9.4 normal, TSH 0.95 normal. Urinalysis: Unremarkable. Microbiology: Blood culture, no growth at 4 days. Urine culture, no growth. Sputum #1 for AFB smear, negative. Thyroid ultrasound was reviewed. It shows the left lobe of the thyroid with multiple nonspecific cysts and nodules, the largest in the left lobe measuring 0.8 cm with a 1.5-cm nonspecific nodule in the right thyroid lower pole. A consultation with Dr. Christoph Antonio regarding these thyroid nodules has been called for evaluation. IMPRESSION: A 62-year-old male with left lung pneumonia with cavitary versus necrotic changes on recent CT after failed outpatient treatment for community-acquired pneumonia on previous hospitalization with comorbidities of chronic hypertension, peptic ulcer disease with gastroesophageal reflux disease, asthma, hyperlipidemia, and anemia of chronic disease and thyroid abnormalities as per thyroid ultrasound. Also with low vitamin B12 levels noted. PLAN: As discussed with nurse, Rima Castorena, interpreting for me with this patient, is to advise the patient upon discharge to follow with his PMD, Dr. Gomez, who is in the process of setting the patient up for elective endoscopy and colonoscopy which I feel is prudent given his anemia of chronic disease and low vitamin B12 levels. Patient now understands the importance of when medically improved to complete outpatient endoscopy and colonoscopy. Also, patient will remain in respiratory isolation waiting for all three sputum for AFB smears to be completed. He continues on lactulose 20 g p.o. daily p.r.n. obstipation, Lipitor 10 mg p.o. daily, Lovenox 40 mg subcu daily, meropenem 1 g IV q.8, nitroglycerin ointment 1 inch to chest wall q.4 hours p.r.n. accelerated hypertension if systolic blood pressure is greater than 160 or diastolic blood pressure is greater than 100, Norvasc 10 mg p.o. daily, Pepcid 40 mg p.o. at bedtime, Robitussin DM 5 mL p.o. q.4 hours p.r.n. cough, Singulair 10 mg p.o. daily, vancomycin 1 g IV q.12, vitamin B12 at 1000 mcg p.o. daily, Xopenex inhalational therapy 0.63 mg inhalational q.6, Zestril 10 mg p.o. daily, and Zofran 4 mg IV q.6 hours p.r.n. nausea and vomiting. He continues on a heart-healthy, soft, bland diet. He is ordered to have ambulation in his room and is aware we are awaiting the results of his QuantiFERON TB Gold antibody testing, ASO antibody testing, and AFB cultures and smears for TB. I am awaiting the decision by Dr. Arteaga and Dr. Serrato regarding the timing of his next CT of the chest and if any further testings are required and all of the above was explained in detail to the patient at his bedside in the presence of his nurse. All questions were answered. Rebekah Banerjee MD [facility] # [id number] [place]
--- NOTE | 2017-05-31 22:12 | PN ---
DATE: 05/31/2017 SUBJECTIVE: I reviewed the thyroid ultrasound on Mr. Hinojosa. There are numerous small hypoechoic nodules and heterogeneity to the thyroid gland. A dominant 1.5 cm hypoechoic nodule seen in the lower pole of the right thyroid. Overall, the appearance is not very suspicious. Two options would be reasonable. One option wouldl be a followup thyroid ultrasound in 6-12 months. If anxiety or clinical issues warrant, a fine needle aspiration of the 1.5 cm right lower pole nodule can be performed as an outpatient. Christoph Antonio MD MTDPhilip
--- NOTE | 2017-06-01 01:49 | PN ---
DATE: 05/31/2017 REFERRING PHYSICIAN: Dr. Banerjee. SUBJECTIVE: He is lying in the bed. is at bedside. Feels much better. No more sputum production. No hemoptysis. Still has some pleuritic pain on the left. No nausea, no vomiting, no diarrhea. No leg pain or leg swelling. OBJECTIVE: GENERAL: In no acute distress. VITAL SIGNS: Temperature is 98, heart rate is 60, respiratory rate is 20, blood pressure 111/71, pulse ox is 94% on nasal cannula. HEENT: Moist mucous membrane. No ulcer or thrush noted. NECK: Supple. No JVD. LUNGS: Have fair airflow with rhonchi. HEART: S1 and S2. ABDOMEN: Soft and nontender. No organomegaly. EXTREMITIES: There is no edema. NEUROLOGICAL: Awake, alert. Follows simple commands. MEDICATIONS: He is on lactulose 20 g daily p.r.n., Lipitor 10 mg daily, Lovenox 40 mg daily, meropenem 1 g IV q.8 hours, Nitro-Bid 2% q.4 hours p.r.n., Norvasc 10 mg daily, Pepcid 40 mg at bedtime, Robitussin DM 5 mL q.4 hours p.r.n., Singulair 10 mg daily, Tylenol p.r.n., vancomycin 1 g IV q.12 hours, vitamin B12 of 1000 mcg daily, Xopenex inhaler q.6 hours., Zestril 10 mg daily, and Zofran on a p.r.n. basis. LABORATORY DATA: Shows hemoglobin 10.8, hematocrit 34.8, WBC 10.6, platelet count is 468. Sed rate is 68. Sodium 142, potassium 4.0, chloride 106, bicarbonate 28, BUN 9, creatinine 0.8, glucose 98. Iron is 48, ferritin is 267. B12 is 237. Procalcitonin 0.05. Microbiology; two smears for AFB are negative. IMPRESSION AND PLAN: Lingular dense infiltrate with a cavity, status post hemoptysis, hypertension, hyperlipidemia, chronic obstructive lung disease, failed outpatient treatment. Continue broad-spectrum antibiotics, gastric prophylaxis, deep vein thrombosis prophylaxis. We will wait for the third AFB smear to be negative, then repeat CT of the chest to assure the stability of cavitary lesion. Thank you and we will follow with you. Ruperto Serrato MD [facility] # [id number]
[2017-06-01 02:01] LABS: TB ANTIGEN MINUS NIL 0.01 IU/mL
[2017-06-01] MEDS: Meropenem 1g/NS 100mL IVPB 1 GM/100 ML PIGGYBACK IVPB SCH ×3 (05:25→23:13)
[2017-06-01] MEDS: Vancomycin 1gm in NS 250ml 1 GM/250 ML BAG IVPB SCH ×2 (10:26→23:13)
[2017-06-01] MEDS: Enoxaparin 40 mg Syringe SC SCH (10:27)
[2017-06-01] MEDS ORDERED: Iohexol 350 MG/100 ML VIAL ONE (13:17)
--- NOTE | 2017-06-01 14:04 | CT ---
PROCEDURE: CT Chest with contrast HISTORY: abscess COMPARISON: 05/27/2017 CT TECHNIQUE: Contiguous axial images were obtained through the chest with intravenous contrast enhancement. Sagittal and coronal reconstructions were performed. IV contrast: 100 cc of Omni 350 Radiation dose (DLP): 483 mGy-cm. This CT exam was performed using one or more of the following dose reduction techniques: Automated exposure control, adjustment of the mA and/or kV according to patient size, and/or use of iterative reconstruction technique. FINDINGS: LUNGS: There is a decrease in the size of the infiltrate and abscess in the lingular segment of the left lobe. The abscess now measures 3.1 cm in diameter previously 4.2 cm. MEDIASTINUM: Unremarkable thoracic aorta. No aneurysm or dissection. Normal sized heart. Main pulmonary artery unremarkable. No vascular congestion. No lymphadenopathy. PLEURA: Small left pleural effusion BONES: No fracture. No destructive lesion. UPPER ABDOMEN: Grossly unremarkable. OTHER FINDINGS: None. IMPRESSION: Decreased size of infiltrate and abscess collection in the lingular segment of the left lobe. See comments
--- NOTE | 2017-06-01 14:22 | CP.PCM.PN ---
Subjective - Date & Time of Evaluation Date of Evaluation: 06/01/17 Time of Evaluation: 13:00 - Subjective Subjective: Infectious Disease Follow Up: June 01, 2017 62 yo male with initial presentation for left chest discomfort and stabbing sensation. CT scan showing lingular consolidation with central lucencies and fluid levels suspicious for cavitation. Quantiferon sent. Only one AFB sent so far. Two AFB was negative. Patient currently in isolation room. He describes cough productive of yellow sputum. [place] [facility] [place] with Leva[place]. He completed that course as an outpatient. There is a report of hemoptysis as an outpatient. Cultures negative to date. Quantiferon is negative. TB is highly unlikely. Awaiting third AFB. Objective - Vital Signs/Intake and Output Vital Signs (last 24 hours): Temp Pulse Resp BP Pulse Ox 98.1 F 56 L 20 100/54 L 95 06/01/17 08:50 06/01/17 10:25 06/01/17 08:50 06/01/17 10:25 06/01/17 08:50 Intake and Output: 06/01/17 06/01/17 06:59 18:59 Intake Total 660 Output Total 600 Balance 60 - Medications Medications: Current Medications Acetaminophen (Tylenol 325mg Tab) 650 mg PO Q6H PRN PRN Reason: Fever >100.4 F Amlodipine Besylate (Norvasc) 10 mg PO DAILY [facility] Last Admin: 06/01/17 10:24 Dose: 10 mg Atorvastatin Calcium (Lipitor) 10 mg PO DIN [facility] Last Admin: 05/31/17 17:45 Dose: 10 mg Cyanocobalamin (Vitamin B12 1000 Mcg Tab) 1,000 mcg PO DAILY [facility] Last Admin: 06/01/17 10:24 Dose: 1,000 mcg Enoxaparin Sodium (Lovenox) 40 mg SC DAILY [facility] PRN Reason: Protocol Last Admin: 06/01/17 10:27 Dose: 40 mg Famotidine (Pepcid) 40 mg PO HS [facility] Last Admin: 05/31/17 22:27 Dose: 40 mg Guaifenesin/Dextromethorphan (Robitussin Dm) 5 ml PO Q4H PRN PRN Reason: Cough Last Admin: 05/29/17 12:30 Dose: 5 ml Meropenem/Sodium Chloride (Meropenem 1g/Ns 100ml Ivpb) 1 gm in 100 mls @ 100 mls/hr IVPB Q8 [facility] PRN Reason: Protocol Last Admin: 06/01/17 05:25 Dose: 100 mls/hr Vancomycin HCl (Vancomycin 1gm) 1 gm in 250 mls @ 250 mls/hr IVPB Q12 [facility] Last Admin: 06/01/17 10:26 Dose: 250 mls/hr Lactulose (Enulose) 20 gm PO DAILY PRN PRN Reason: Constipation Levalbuterol HCl (Xopenex) 0.63 mg IH [id number] PRN PRN Reason: Shortness of Breath Last Admin: 05/30/17 08:22 Dose: 0.63 mg Lisinopril (Zestril) 10 mg PO DAILY [facility] Last Admin: 06/01/17 10:25 Dose: 10 mg Montelukast Sodium (Singulair) 10 mg PO DAILY [facility] Last Admin: 06/01/17 10:24 Dose: 10 mg Nitroglycerin (Nitro-Bid 2% Oint) 1 ea TOP Q4H PRN PRN Reason: accelerated hypertension Ondansetron HCl (Zofran Inj) 4 mg IVP Q6H PRN PRN Reason: Nausea/Vomiting - Labs Labs: 05/31/17 06:30 05/31/17 06:30 - Constitutional Appears: Non-toxic, No Acute Distress, Chronically Ill - Head Exam Head Exam: ATRAUMATIC, NORMOCEPHALIC - Eye Exam Eye Exam: EOMI, PERRL Pupil Exam: NORMAL ACCOMODATION, PERRL - ENT Exam ENT Exam: Mucous Membranes Moist, Normal External Ear Exam, TM's Normal Bilaterally - Neck Exam Neck Exam: Full ROM, Normal Inspection - Respiratory Exam Respiratory Exam: Clear to Ausculation Bilateral, NORMAL BREATHING PATTERN. absent: Rales, Rhonchi, Wheezes - Cardiovascular Exam Cardiovascular Exam: REGULAR RHYTHM, RRR, +S1, +S2 - GI/Abdominal Exam GI & Abdominal Exam: Soft, Normal Bowel Sounds. absent: Distended, Tenderness - Extremities Exam Extremities Exam: Full ROM, Normal Inspection - Neurological Exam Neurological Exam: Alert, Awake, CN II-XII Intact, Oriented x3 - Psychiatric Exam Psychiatric exam: Normal Affect, Normal Mood - Skin Skin Exam: Intact, Normal Color Assessment and Plan - Assessment and Plan (Free Text) Assessment: 62 yo male recently hospitalized for left lung pneumonia with questionable finding of a lingular cavitation versus abscess in the left lingular region. Evaluation for TB at this time. Two AFB was negative. Require two more. Check procalcitonin levels. Check Quantiferon (results are still pending). Cannot rule out gram positive bacterial etiology as well. Procalcitonin has been low on two checks during this hospitalization. Obtain 1 more AFB samples. Quantiferon negative. TB highly unlikely. Procalcitonin less than 0.05 on two checks during this hospitalization. Consider repeat CT scan this week. Mild leukocytosis. Obtain ASO. Cultures on this hospitalization appear to be negative so far. Patient does complain of left lower chest pain. Obtain Fungitell testing (received by lab 06/01/2017). Thank you for allowing me to participate in the care of the patient, we will follow with you.
--- NOTE | 2017-06-01 16:15 | PN ---
DATE: 06/01/2017 SUBJECTIVE: This 62-year-old male remains hospitalized with left upper lung pneumonia. At present, he remains in respiratory isolation with 2 out of 3 AFB smears negative for TB. The patient is receiving IV meropenem and IV vancomycin in the setting of failed oral outpatient pneumonia treatment and at present, he is being followed by Pulmonary and GI consultants. He denies any fever, chills, chest pain or hemoptysis. PHYSICAL EXAMINATION: VITAL SIGNS: Remains in normal sinus rhythm with a temperature of 98.1, respirations 20, pulse 56 and blood pressure 100/54 and pulse ox of 95% room air. HEENT: Head: Normocephalic, atraumatic. Eyes: No icterus. Ears: Clear. Throat: Noninjected. NECK: Supple. HEART: Regular S1, S2. LUNGS: With rhonchi in the left posterior lung field. ABDOMEN: Soft. EXTREMITIES: No edema. SKIN: Without rash. NEUROLOGICAL: Intact. PSYCHOLOGICAL: Alert. VASCULAR: Legs warm to touch. LABORATORY DATA: White count 10,600, hemoglobin 10.8, hematocrit 34.8, platelets 168,000. Sodium 142, K 4.0, chloride 106, bicarb 28, BUN 9, creatinine 0.8, random blood sugar is 98, percent saturation is 27%, ferritin level 267. Vitamin B12 237. Folic acid 4.4. Procalcitonin level less than 0.05 x2. Thyroid function normal; T4 9.4, normal; TSH 0.95, normal. ASO antibodies negative. TB QFT testing negative. IMPRESSION: This is a 62-year-old male with a left upper lung pneumonia abscess versus necrosis with no history of cigarette smoking, now with comorbidities of hyperlipidemia, chronic hypertension, anemia of chronic disease, low vitamin B12 levels and history of asthma. PLAN: As discussed with the patient and nurse, Nadja Blake, will be to continue the patient in respiratory isolation until cleared by Pulmonary to withdraw this restriction. He will continue on Zestril, inhalational Xopenex, oral vitamin B12, IV vancomycin, IV meropenem, Singulair orally, Robitussin-DM, Pepcid orally, Norvasc, Lovenox subcu, Lipitor and lactulose p.r.n. The patient was seen by Dr. Christoph Antonio from Interventional Radiology and he will follow the patient upon discharge with options for thyroid nodule biopsy versus followup thyroid ultrasound in 6 to 12 months. We will await the final results of his third AFB smear culture and his Fungitell testing by Dr. Juan Jose Arteaag. all of the above was discussed in detail with the patient and nursing. All questions were answered. Rebekah Banerjee MD MTD[facility]
--- NOTE | 2017-06-01 17:08 | PN ---
DATE: 06/01/2017 REFERRING PHYSICIAN: Rebekah Banerjee MD. SUBJECTIVE: The patient is lying in the bed at 45 degrees. Night was unremarkable. Feels better. Decreased cough, decreased shortness of breath. No pleuritic pain today. No nausea. No vomiting. No leg pain or leg swelling. PHYSICAL EXAMINATION: GENERAL: In no acute distress. VITAL SIGNS: Temperature is 98, heart rate is 56, respiratory rate is 20, blood pressure 100/54, and pulse ox 95% on room air. HEENT: Moist mucous membrane. No ulcer or thrush noted. NECK: Supple. No JVD. LUNGS: Fair airflow with a few rhonchi. HEART: S1 and S2. ABDOMEN: Soft, nontender. No organomegaly. EXTREMITIES: There is no edema. NEUROLOGIC: Awake and alert. Follows simple command. MEDICATIONS: He is on lactulose 20 g p.o. daily p.r.n., Lipitor 10 mg daily, Lovenox 40 mg daily, meropenem 1 g IV q. 8 hours, Nitro-Bid 2% ointment to affected area q. 4 hours, Norvasc 10 mg daily, Pepcid 40 mg at bedtime, Robitussin DM 5 mL q. 4 hours p.r.n., Singulair 10 mg daily, Tylenol p.r.n. basis, vancomycin 1 g IV q. 12 hours, vitamin B12 1000 mcg daily, Xopenex inhale q. 6 hours., Zestril 10 mg daily, and Zofran 4 mg q. 6 hours p.r.n. LABORATORY DATA: Reviewed. TB Gold test is negative. So far, two sputum smears are negative, third is pending. IMPRESSION AND PLAN: Lingular dense infiltrate with a cavity, status post hemoptysis, hypertension, hyperlipidemia, chronic obstructive lung disease, failed outpatient treatment. Presently on broad-spectrum antibiotics. TB gold test is negative. Two sputum negative, third is pending to discontinue isolation. We will repeat CT of the chest to assure the cavity is closing and infiltrate is getting better. We will send vancomycin for trough level. Thank you and we will follow with you. Ruperto Serrato MD [facility] # [id number]
[2017-06-02] MEDS: Meropenem 1g/NS 100mL IVPB 1 GM/100 ML PIGGYBACK IVPB SCH ×3 (05:28→21:44)
[2017-06-02] MEDS: Vancomycin 1gm in NS 250ml 1 GM/250 ML BAG IVPB SCH ×2 (09:23→21:43)
[2017-06-02] MEDS: Enoxaparin 40 mg Syringe SC SCH (09:23)
--- NOTE | 2017-06-02 22:39 | CP.PCM.PN ---
Subjective - Date & Time of Evaluation Date of Evaluation: 06/02/17 Time of Evaluation: 20:30 - Subjective Subjective: Infectious Disease Follow Up: June 02, 2017 62 yo male with initial presentation for left chest discomfort and stabbing sensation. CT scan showing lingular consolidation with central lucencies and fluid levels suspicious for cavitation. Quantiferon sent. Three AFB sent so far. All three AFB was negative. Patient off of isolation. He describes cough productive of yellow sputum. He was recently in [facility] [place] and discharged with Levaquin. He completed that course as an outpatient. There is a report of hemoptysis as an outpatient. Cultures negative to date. Quantiferon is negative. Three AFB negative. TB is highly unlikely. Fungitell pending. Objective - Vital Signs/Intake and Output Vital Signs (last 24 hours): Temp Pulse Resp BP Pulse Ox 98.4 F 63 18 120/70 96 06/02/17 16:00 06/02/17 16:00 06/02/17 16:00 06/02/17 16:00 06/02/17 16:00 Intake and Output: 06/02/17 06/03/17 18:59 06:59 Intake Total 1020 Output Total 800 Balance 220 - Medications Medications: Current Medications Acetaminophen (Tylenol 325mg Tab) 650 mg PO Q6H PRN PRN Reason: Fever >100.4 F Amlodipine Besylate (Norvasc) 10 mg PO DAILY [facility] Last Admin: 06/02/17 09:25 Dose: 10 mg Atorvastatin Calcium (Lipitor) 10 mg PO DIN [facility] Last Admin: 06/02/17 16:44 Dose: 10 mg Cyanocobalamin (Vitamin B12 1000 Mcg Tab) 1,000 mcg PO DAILY [facility] Last Admin: 06/02/17 09:23 Dose: 1,000 mcg Enoxaparin Sodium (Lovenox) 40 mg SC DAILY [facility] PRN Reason: Protocol Last Admin: 06/02/17 09:23 Dose: 40 mg Famotidine (Pepcid) 40 mg PO HS [facility] Last Admin: 06/02/17 21:43 Dose: 40 mg Guaifenesin/Dextromethorphan (Robitussin Dm) 5 ml PO Q4H PRN PRN Reason: Cough Last Admin: 05/29/17 12:30 Dose: 5 ml Meropenem/Sodium Chloride (Meropenem 1g/Ns 100ml Ivpb) 1 gm in 100 mls @ 100 mls/hr IVPB Q8 [facility] PRN Reason: Protocol Last Admin: 06/02/17 21:44 Dose: 100 mls/hr Vancomycin HCl (Vancomycin 1gm) 1 gm in 250 mls @ 250 mls/hr IVPB Q12 [facility] Last Admin: 06/02/17 21:43 Dose: 250 mls/hr Lactulose (Enulose) 20 gm PO DAILY PRN PRN Reason: Constipation Levalbuterol HCl (Xopenex) 0.63 mg IH [id number] PRN PRN Reason: Shortness of Breath Last Admin: 05/30/17 08:22 Dose: 0.63 mg Lisinopril (Zestril) 10 mg PO DAILY [facility] Last Admin: 06/02/17 09:24 Dose: 10 mg Montelukast Sodium (Singulair) 10 mg PO DAILY [facility] Last Admin: 06/02/17 09:23 Dose: 10 mg Nitroglycerin (Nitro-Bid 2% Oint) 1 ea TOP Q4H PRN PRN Reason: accelerated hypertension Ondansetron HCl (Zofran Inj) 4 mg IVP Q6H PRN PRN Reason: Nausea/Vomiting - Labs Labs: 05/31/17 06:30 05/31/17 06:30 - Constitutional Appears: Non-toxic, No Acute Distress, Chronically Ill - Head Exam Head Exam: ATRAUMATIC, NORMOCEPHALIC - Eye Exam Eye Exam: EOMI, PERRL Pupil Exam: NORMAL ACCOMODATION, PERRL - ENT Exam ENT Exam: Mucous Membranes Moist, Normal External Ear Exam, TM's Normal Bilaterally - Respiratory Exam Respiratory Exam: Clear to Ausculation Bilateral, NORMAL BREATHING PATTERN. absent: Rales, Rhonchi, Wheezes - Cardiovascular Exam Cardiovascular Exam: REGULAR RHYTHM, RRR, +S1, +S2 - GI/Abdominal Exam GI & Abdominal Exam: Soft, Normal Bowel Sounds. absent: Distended, Tenderness - Extremities Exam Extremities Exam: Full ROM, Normal Inspection - Neurological Exam Neurological Exam: Alert, Awake, CN II-XII Intact, Oriented x3 - Psychiatric Exam Psychiatric exam: Normal Affect, Normal Mood - Skin Skin Exam: Intact, Normal Color Assessment and Plan - Assessment and Plan (Free Text) Assessment: 62 yo male recently hospitalized for left lung pneumonia with questionable finding of a lingular cavitation versus abscess in the left lingular region. Evaluation for TB at this time. Two AFB was negative. Require two more. Check procalcitonin levels. Check Quantiferon (results are still pending). Cannot rule out gram positive bacterial etiology as well. Procalcitonin has been low on two checks during this hospitalization. Quantiferon negative. AFB x 3 negative. TB highly unlikely. Procalcitonin less than 0.05 on two checks during this hospitalization. Repeat CT scan shows inproving lingular infiltrate/lesion. Mild leukocytosis. Cultures on this hospitalization appear to be negative so far. Patient does complain of left lower chest pain. Obtain Fungitell testing (received by lab 06/01/2017). On Vancomycin and Meropenem for treatment at this time. Cultures have not shown a particular organism. Consider up to 10 days of antibiotic therapy with Meropenem. Thank you for allowing me to participate in the care of the patient, we will follow with you.
--- NOTE | 2017-06-03 00:34 | PN ---
DATE: 06/02/2017 SUBJECTIVE: This 62-year-old male remains hospitalized on parenteral antibiotics including IV meropenem and IV vancomycin in the setting of a left upper lung pneumonia. Of note, the patient had a repeat CT of the chest performed on Tuesday, 06/01. This was reviewed. It shows a decrease in the size of the infiltrate and abscess in the lingular segment of the left upper lobe. The abscess now measures 3.1 cm in diameter, previously measured 4.2 cm, also noted was a small left pleural effusion. There was no evidence of pulmonary vascular congestion and no lymphadenopathy. The patient at present remains afebrile and denies fever, chills or cough or hemoptysis. PHYSICAL EXAMINATION: VITAL SIGNS: Temperature 98.3, respirations 18, pulse 55 and blood pressure 113/65 with a pulse ox of 96% room air. HEENT: Head: Normocephalic, atraumatic. Eyes: No icterus. Ears: Clear. Throat: Noninjected. NECK: Supple. HEART: Regular S1, S2. LUNGS: With rhonchi in the left upper posterior lung field. No wheezing, no rales. ABDOMEN: Soft. EXTREMITIES: No edema. SKIN: Without rash. NEUROLOGICAL: Intact. PSYCHOLOGICAL: Alert. VASCULAR: Legs warm to touch. LABORATORY DATA: White count 10,600, hemoglobin 10.8, hematocrit 34.8, platelets 168,000. Sodium 142, K 4.0, chloride 106, bicarb 28, BUN 9, creatinine 0.8, random blood sugar 98, percent saturation 27, ferritin level 267. Urinalysis unremarkable. Vancomycin trough 13.5. TB (QFT testing) negative. ASO titers negative. Fungitell testing pending. IMPRESSION: This is a 62-year-old male with left lingular lung pneumonia with CT suggestive of abscess formation, which fortunately is improving in size by showing decrease in size on second CT performed with comorbidities of anemia of chronic disease, hyperlipidemia, chronic hypertension, peptic ulcer disease with gastroesophageal reflux disease, asthma, vitamin B12 deficiency. PLAN: As discussed with the patient, nursing, co-consultants from Pulmonary and Infectious Disease, will be to continue IV vancomycin and IV meropenem, the duration of which will be decided by Dr. Arteaga from Infectious Disease. We are awaiting his Fungitell blood testing results. He continues on Zestril 10 mg p.o. daily, Xopenex inhalational therapy q. 6 hours, vitamin B12 1000 mcg p.o. daily, vancomycin 1 g q. 12, meropenem 1 g IV q. 8, Singulair 10 mg p.o. daily, Robitussin DM 5 mL p.o. q. 4 hours p.r.n. cough, Pepcid 40 mg p.o. at bedtime, Norvasc 10 mg p.o. daily, nitroglycerin 1 inch chest wall q. 4 hours p.r.n. accelerated hypertension if systolic blood pressure greater than 160 or diastolic blood pressure greater than 100, Lovenox 40 mg subcu daily, Lipitor 10 mg p.o. daily and lactulose 20 g p.o. daily p.r.n. obstipation. Of note, the patient has had three AFB sputum samples, all of which showed no acid-fast bacilli on AFB stains. Blood culture showed no growth to date and urine culture shows no growth as well. Ultimate plan will be for discharge to home with the patient to follow up with his primary care physician, Dr. Avinash Stevens, for outpatient management of his multiple comorbidities and patient is aware that he does need an endoscopy and colonoscopy for completeness sake given anemia of chronic disease and low vitamin B12 levels and that he will need outpatient followup of his thyroid nodules and follow up thyroid ultrasonography and possible biopsy of his thyroid nodule that is being followed by Dr. Christoph Antonio from Interventional Radiology. Hopefully, he will be compliant with all of the above. Rebekah Banerjee MD MTD[facility]
--- NOTE | 2017-06-03 01:57 | PN ---
DATE: REFERRING PHYSICIAN: Rebekah Banerjee MD. SUBJECTIVE: He is lying in the bed. Feels better. No hemoptysis. Not much cough. No more pleuritic pain. No nausea. No vomiting or diarrhea. No leg pain or leg swelling. PHYSICAL EXAMINATION: GENERAL: In no acute distress. VITAL SIGNS: Temperature is 98, heart rate is 63, respiratory rate is 18, blood pressure 120/70, pulse ox 96% on room air. HEENT: Moist mucous membrane. Crowded airway. NECK: Supple. No JVD. LUNGS: Fair airflow with rhonchi. HEART: S1 and S2. ABDOMEN: Soft, nontender. No organomegaly. EXTREMITIES: No edema. NEUROLOGIC: Awake and alert. Follows simple command. MEDICATIONS: He is on lactulose 20 g daily p.r.n., Lipitor 10 mg daily, Lovenox 40 mg daily, meropenem 1 g IV q. 8 hours, nitroglycerin p.r.n. basis, Norvasc 10 mg daily, Pepcid 40 mg at bedtime, Robitussin DM 5 mL q. 4 hours p.r.n., Singulair 10 mg daily, Tylenol p.r.n., vancomycin 1 g q. 12 hours, vitamin B12 at 1000 mcg daily, Xopenex inhaled q. 6 hours., Zestril 10 mg daily, Zofran p.r.n. basis. LABORATORY DATA: Reviewed. Microbiology, 3 sputum AFB smears have been negative. Cultures are pending. CAT scan of the chest done yesterday showed decreased size of the cavitary lesion. IMPRESSION AND PLAN: Lingular dense infiltrate with cavity, status post hemoptysis, hypertension, hyperlipidemia, chronic obstructive lung disease. Clinically and radiologically, his cavity is smaller. No more hemoptysis. No cough. Breathing is better. No fever. Smear for TB is negative. Continue antibiotics antibiotic should be continued until the cavity closes, at least about 3 weeks or so. Let Infectious Disease make decision about p.o. antibiotics. Thank you and we will follow with you. Ruperto Serrato MD [facility] # [id number]
[2017-06-03] MEDS: Meropenem 1g/NS 100mL IVPB 1 GM/100 ML PIGGYBACK IVPB SCH ×3 (06:00→22:02)
[2017-06-03] MEDS: Enoxaparin 40 mg Syringe SC SCH (10:43)
[2017-06-03] MEDS: Vancomycin 1gm in NS 250ml 1 GM/250 ML BAG IVPB SCH ×2 (10:43→22:02)
--- NOTE | 2017-06-03 18:08 | CP.PCM.PN ---
Subjective - Date & Time of Evaluation Date of Evaluation: 06/03/17 Time of Evaluation: 16:15 - Subjective Subjective: Infectious Disease Follow Up: June 03, 2017 62 yo male with initial presentation for left chest discomfort and stabbing sensation. CT scan showing lingular consolidation with central lucencies and fluid levels suspicious for cavitation. Quantiferon sent. Three AFB sent so far. All three AFB was negative. Patient off of isolation. He describes cough productive of yellow sputum. He was recently in [facility] and discharged with Levaquin. He completed that course as an outpatient. There is a report of hemoptysis as an outpatient. Cultures negative to date. Quantiferon is negative. Three AFB negative. TB is highly unlikely. Fungitell pending. Objective - Vital Signs/Intake and Output Vital Signs (last 24 hours): Temp Pulse Resp BP Pulse Ox 98.4 F 69 18 114/72 96 06/02/17 16:00 06/03/17 10:42 06/02/17 16:00 06/03/17 10:43 06/02/17 16:00 Intake and Output: 06/03/17 06/03/17 06:59 18:59 Intake Total 1500 Output Total 800 Balance 700 - Medications Medications: Current Medications Acetaminophen (Tylenol 325mg Tab) 650 mg PO Q6H PRN PRN Reason: Fever >100.4 F Amlodipine Besylate (Norvasc) 10 mg PO DAILY [facility] Last Admin: 06/03/17 10:43 Dose: 10 mg Atorvastatin Calcium (Lipitor) 10 mg PO DIN [facility] Last Admin: 06/03/17 17:16 Dose: 10 mg Cyanocobalamin (Vitamin B12 1000 Mcg Tab) 1,000 mcg PO DAILY [facility] Last Admin: 06/03/17 10:43 Dose: 1,000 mcg Enoxaparin Sodium (Lovenox) 40 mg SC DAILY [facility] PRN Reason: Protocol Last Admin: 06/03/17 10:43 Dose: 40 mg Famotidine (Pepcid) 40 mg PO HS [facility] Last Admin: 06/02/17 21:43 Dose: 40 mg Guaifenesin/Dextromethorphan (Robitussin Dm) 5 ml PO Q4H PRN PRN Reason: Cough Last Admin: 05/29/17 12:30 Dose: 5 ml Meropenem/Sodium Chloride (Meropenem 1g/Ns 100ml Ivpb) 1 gm in 100 mls @ 100 mls/hr IVPB Q8 [facility] PRN Reason: Protocol Last Admin: 06/03/17 14:41 Dose: 100 mls/hr Vancomycin HCl (Vancomycin 1gm) 1 gm in 250 mls @ 250 mls/hr IVPB Q12 [facility] Last Admin: 06/03/17 10:43 Dose: 250 mls/hr Lactulose (Enulose) 20 gm PO DAILY PRN PRN Reason: Constipation Levalbuterol HCl (Xopenex) 0.63 mg IH [id number] PRN PRN Reason: Shortness of Breath Last Admin: 05/30/17 08:22 Dose: 0.63 mg Lisinopril (Zestril) 10 mg PO DAILY [facility] Last Admin: 06/03/17 10:42 Dose: 10 mg Montelukast Sodium (Singulair) 10 mg PO DAILY [facility] Last Admin: 06/03/17 10:43 Dose: 10 mg Nitroglycerin (Nitro-Bid 2% Oint) 1 ea TOP Q4H PRN PRN Reason: accelerated hypertension Ondansetron HCl (Zofran Inj) 4 mg IVP Q6H PRN PRN Reason: Nausea/Vomiting - Labs Labs: 05/31/17 06:30 05/31/17 06:30 - Constitutional Appears: Non-toxic, No Acute Distress, Chronically Ill - Head Exam Head Exam: ATRAUMATIC, NORMOCEPHALIC - Eye Exam Eye Exam: EOMI, PERRL Pupil Exam: NORMAL ACCOMODATION, PERRL - ENT Exam ENT Exam: Mucous Membranes Moist, Normal External Ear Exam, TM's Normal Bilaterally - Neck Exam Neck Exam: Full ROM, Normal Inspection - Respiratory Exam Respiratory Exam: Clear to Ausculation Bilateral, NORMAL BREATHING PATTERN. absent: Rales, Rhonchi, Wheezes - Cardiovascular Exam Cardiovascular Exam: REGULAR RHYTHM, RRR, +S1, +S2 - GI/Abdominal Exam GI & Abdominal Exam: Soft, Normal Bowel Sounds. absent: Distended, Tenderness - Extremities Exam Extremities Exam: Full ROM, Normal Inspection - Neurological Exam Neurological Exam: Alert, Awake, CN II-XII Intact, Oriented x3 - Psychiatric Exam Psychiatric exam: Normal Affect, Normal Mood - Skin Skin Exam: Intact, Normal Color Assessment and Plan - Assessment and Plan (Free Text) Assessment: 62 yo male recently hospitalized for left lung pneumonia with questionable finding of a lingular cavitation versus abscess in the left lingular region. Evaluation for TB at this time. Two AFB was negative. Require two more. Check procalcitonin levels. Check Quantiferon (results are still pending). Cannot rule out gram positive bacterial etiology as well. Procalcitonin has been low on two checks during this hospitalization. Quantiferon negative. AFB x 3 negative. TB highly unlikely. Procalcitonin less than 0.05 on two checks during this hospitalization. Repeat CT scan shows inproving lingular infiltrate/lesion. Mild leukocytosis. Cultures on this hospitalization appear to be negative so far. Patient does complain of left lower chest pain. Obtain Fungitell testing (received by lab 06/01/2017). On Vancomycin and Meropenem for treatment at this time. Cultures have not shown a particular organism. Consider up to 10 days of antibiotic therapy with Meropenem. On day 7 now of meropenem. Thank you for allowing me to participate in the care of the patient, we will follow with you.
--- NOTE | 2017-06-03 21:15 | PN ---
DATE: 06/03/2017 SUBJECTIVE: This 62-year-old male was examined at the bedside and this case was reviewed in detail with himself and his nurse, Rima Castorena, registered nurse, who was present for the interview. The patient is out of bed to chair. He states that his pleuritic chest pain is markedly diminished. He states he has had no fever, chills, or hemoptysis and is tolerating IV meropenem and vancomycin without incident. Three AFB smears have been negative for TB and to date, his Fungitell lab testing is pending. PHYSICAL EXAMINATION: VITAL SIGNS: Temperature 98.4, respirations 18, pulse 69, blood pressure 114/72 with a pulse ox of 96% on room air. HEENT: Head: Normocephalic, atraumatic. Eyes: No icterus. Ears: Clear. Throat: Noninjected. NECK: Supple. HEART: Regular S1, S2. LUNGS: With rhonchi at the left posterior lung field. ABDOMEN: Soft. EXTREMITIES: No edema. SKIN: Without rash. NEUROLOGICAL: Intact. PSYCHOLOGICAL: Alert. VASCULAR: Legs warm to touch. LABORATORY DATA: White count 10,600, hemoglobin 10.8, hematocrit 34.8, platelets 168,000. Sodium 142, K 4.0, chloride 106, bicarb 28, BUN 9, creatinine 0.8, random blood sugar 98. ASO antibody titer is negative. TB test (QFT) negative. AFB smear x3 negative for TB acid-fast bacillus. Blood cultures show no growth. Urine culture, no growth. IMPRESSION: Is a 62-year-old male with left lung pneumonia and comorbidities of hyperlipidemia, chronic hypertension, peptic ulcer disease with gastroesophageal reflux disease, asthma, anemia of chronic disease, vitamin B12 deficiency, and thyroid nodule. PLAN: As discussed with the patient in the presence of nursing is to continue IV antibiotics under the direction of Dr. Arteaga from Infectious Disease and continuing heart-healthy diet. He continues on Zestril, Xopenex, vitamin B12, IV vancomycin, IV meropenem, Tylenol p.r.n., Singulair, Robitussin DM, Pepcid, Norvasc, Lovenox, Lipitor, and lactulose p.r.n. The patient will have a basic metabolic panel and CBC in the a.m. He is aware he needs to schedule an endoscopy and colonoscopy and followup of his thyroid nodule with Dr. Christoph Antonio and his PMD, Dr. Stevens, to be monitored either with a fine-needle aspirate and/or 6 months' thyroid ultrasound followup. The patient is aware and in agreement with the above. All of the above was discussed in detail with his nurse, Rima Castorena, acting as suture winder hand. All questions were answered. Rebekah Banerjee MD MTDD
--- NOTE | 2017-06-04 01:13 | PN ---
DATE: 06/03/2017 REFERRING PHYSICIAN: Rebekah Banerjee MD SUBJECTIVE: He is lying in the bed, head at 45 degrees. Feels better. No headache, no rhinitis. Cough is better. No nausea, vomiting, or diarrhea. No leg pain or leg swelling. No more pleuritic pain. OBJECTIVE: GENERAL: In no acute distress. VITAL SIGNS: Temperature is 98, heart rate is 69, respiratory rate is 18, blood pressure 114/72, pulse ox 96% room air. HEENT: Moist mucous membrane. No ulcer or thrush noted. NECK: Supple. No JVD. LUNGS: Has a fair airflow with few rhonchi. HEART: S1, S2. ABDOMEN: Soft, nontender, no organomegaly. EXTREMITIES: No edema. NEUROLOGIC: Awake, alert, follows simple commands. MEDICATIONS: He is on lactulose 20 g daily p.r.n., Lipitor 10 mg daily, Lovenox 40 mg subcu daily, meropenem 1 g IV q.8h., Nitro-Bid q.4h. p.r.n., Norvasc 10 mg daily, Pepcid 40 mg at bedtime, Robitussin DM 5 mL q.4h. p.r.n., Singulair 10 mg daily, Tylenol on p.r.n. basis, vancomycin 1 g IV q.12h., vitamin B12 1000 mcg daily, Xopenex inhaled q.6h., Zestril 10 mg daily, Zofran p.r.n. basis. LABORATORY DATA: Reviewed. No new lab is available since yesterday. IMPRESSION AND PLAN: Lingular dense infiltrate - left cavity, status post hemoptysis, hypertension, hyperlipidemia, chronic obstructive lung disease. Radiologically and clinically improved. Cavity size is smaller. Continue antibiotics as per Infectious Diseases. Keep head at 45 degrees. Incentive spirometer. May need PFT upon discharge as outpatient. Also consider attended sleep study upon discharge as outpatient. Followup CAT scan after completing the treatment to assure the closing of the cavity. Thank you and we will follow with you. Ruperto Serrato MD
[2017-06-04] MEDS: Meropenem 1g/NS 100mL IVPB 1 GM/100 ML PIGGYBACK IVPB SCH ×3 (05:22→22:31)
[2017-06-04 08:13] LABS: HEMOGLOBIN 11.4 g/dL (14.0-18.0); MEAN CORPUSCULAR HEMOGLOBIN 22.7 pg (25.0-35.0); MEAN CORPUSCULAR HGB CONC 31.5 g/dl (31.0-37.0); MEAN PLATELET VOLUME 9.6 fl (7.0-11.0); RBC 5.03 10^6/uL (3.5-6.1); RED CELL DISTRIBUTION WIDTH 14.6 % (11.5-14.5); WHITE BLOOD COUNT 10.9 10^3/ul (4.5-11.0)
[2017-06-04 08:39] LABS: BLOOD UREA NITROGEN 12 mg/dL (7-21); CALCIUM 9.4 mg/dL (8.4-10.5); GFR AFRICAN-AMERICAN > 60; GFR NON-AFRICAN AMERICAN > 60
[2017-06-04] MEDS: Enoxaparin 40 mg Syringe SC SCH (09:10)
[2017-06-04] MEDS: Vancomycin 1gm in NS 250ml 1 GM/250 ML BAG IVPB SCH ×2 (09:10→22:31)
--- NOTE | 2017-06-04 12:28 | PN ---
DATE: 06/04/2017 REFERRING PHYSICIAN: Dr. Banerjee. SUBJECTIVE: The patient is lying in the bed, head at 45 degrees. Night was unremarkable. No headache. No rhinitis. No cough. No sputum production. No hemoptysis. No pleuritic pain. No vomiting. No nausea. No leg pain or leg swelling. OBJECTIVE GENERAL: In no acute distress. VITAL SIGNS: Temperature is 98, heart rate 56, respiratory rate 18, blood pressure 101/56, pulse ox 100% on room air. HEENT: Moist mucous membrane. Crowded airway. NECK: Supple. No JVD. LUNGS: Have a fair airflow with rhonchi. HEART: S1 and S2. ABDOMEN: Soft, nontender. No organomegaly. EXTREMITIES: There is no edema. NEUROLOGICAL: Awake and alert. Follows simple command. MEDICATIONS: He is on lactulose on p.r.n. basis. He is also on Lipitor 10 mg daily, Lovenox 40 mg daily, meropenem 1 g IV q. 8 hours, Nitro-Bid to skin q. 4 hours p.r.n., Norvasc 10 mg daily, Pepcid 40 mg at bedtime, Robitussin DM 5 mL q. 4 hours p.r.n., Singulair 10 mg daily, Tylenol p.r.n., vancomycin 1 g IV q. 12 hours, vitamin B 12,000 mcg daily, Xopenex inhaled q. 6 hours p.r.n., Zestril 10 mg daily, and Zofran on p.r.n. basis. LABORATORY DATA: Shows hemoglobin 11.4, hematocrit 36.2, WBC 10.9, platelet is 513,0000. Sodium 141, potassium 4.1, chloride 106, bicarbonate 25, BUN 12, creatinine 0.7, glucose is 88, calcium is 9.4. Procalcitonin is 8.05. IMPRESSION AND PLAN: Lingular dense infiltrate, left; also has a cavitary lesion, status post hemoptysis; hypertension, hyperlipidemia; chronic obstructive lung disease. Clinically and radiologically, he is improving. No more fever. No hemoptysis. No cough. Antibiotics as per Infectious Diseases. Pulmonary point of view, he is doing okay. Continue pulmonary toilet. Once discharged, he will need PFT. . Ruperto Serrato MD [facility] # [id number]
--- NOTE | 2017-06-04 19:12 | CP.PCM.PN ---
Subjective - Date & Time of Evaluation Date of Evaluation: 06/04/17 Time of Evaluation: 18:15 - Subjective Subjective: Infectious Disease Follow Up: June 04, 2017 62 yo male with initial presentation for left chest discomfort and stabbing sensation. CT scan showing lingular consolidation with central lucencies and fluid levels suspicious for cavitation. Quantiferon sent. Three AFB sent so far. All three AFB was negative. Patient off of isolation. He describes cough productive of yellow sputum. He was recently in [facility] and discharged with Levaquin. He completed that course as an outpatient. There is a report of hemoptysis as an outpatient. Cultures negative to date. Quantiferon is negative. Three AFB negative. TB is highly unlikely. Fungitell pending. Clinically improving. On meropenem now day 8. Objective - Vital Signs/Intake and Output Vital Signs (last 24 hours): Temp Pulse Resp BP Pulse Ox 98.8 F 56 L 19 101/56 L 100 06/04/17 08:17 06/04/17 09:09 06/04/17 08:17 06/04/17 09:09 06/04/17 08:17 - Medications Medications: Current Medications Acetaminophen (Tylenol 325mg Tab) 650 mg PO Q6H PRN PRN Reason: Fever >100.4 F Amlodipine Besylate (Norvasc) 10 mg PO DAILY [facility] Last Admin: 06/04/17 09:09 Dose: 10 mg Atorvastatin Calcium (Lipitor) 10 mg PO DIN [facility] Last Admin: 06/04/17 17:09 Dose: 10 mg Cyanocobalamin (Vitamin B12 1000 Mcg Tab) 1,000 mcg PO DAILY [facility] Last Admin: 06/04/17 09:09 Dose: 1,000 mcg Enoxaparin Sodium (Lovenox) 40 mg SC DAILY [facility] PRN Reason: Protocol Last Admin: 06/04/17 09:10 Dose: 40 mg Famotidine (Pepcid) 40 mg PO HS [facility] Last Admin: 06/03/17 22:02 Dose: 40 mg Guaifenesin/Dextromethorphan (Robitussin Dm) 5 ml PO Q4H PRN PRN Reason: Cough Last Admin: 05/29/17 12:30 Dose: 5 ml Meropenem/Sodium Chloride (Meropenem 1g/Ns 100ml Ivpb) 1 gm in 100 mls @ 100 mls/hr IVPB Q8 [facility] PRN Reason: Protocol Last Admin: 06/04/17 17:09 Dose: 100 mls/hr Vancomycin HCl (Vancomycin 1gm) 1 gm in 250 mls @ 250 mls/hr IVPB Q12 [facility] Last Admin: 06/04/17 09:10 Dose: 250 mls/hr Lactulose (Enulose) 20 gm PO DAILY PRN PRN Reason: Constipation Levalbuterol HCl (Xopenex) 0.63 mg IH [id number] PRN PRN Reason: Shortness of Breath Last Admin: 05/30/17 08:22 Dose: 0.63 mg Lisinopril (Zestril) 10 mg PO DAILY [facility] Last Admin: 06/04/17 09:09 Dose: 10 mg Montelukast Sodium (Singulair) 10 mg PO DAILY [facility] Last Admin: 06/04/17 09:09 Dose: 10 mg Nitroglycerin (Nitro-Bid 2% Oint) 1 ea TOP Q4H PRN PRN Reason: accelerated hypertension Ondansetron HCl (Zofran Inj) 4 mg IVP Q6H PRN PRN Reason: Nausea/Vomiting - Labs Labs: 06/04/17 07:00 06/04/17 07:00 - Constitutional Appears: Non-toxic, No Acute Distress, Chronically Ill - Head Exam Head Exam: ATRAUMATIC, NORMOCEPHALIC - Eye Exam Eye Exam: EOMI, PERRL Pupil Exam: NORMAL ACCOMODATION, PERRL - ENT Exam ENT Exam: Mucous Membranes Moist, Normal External Ear Exam, TM's Normal Bilaterally - Neck Exam Neck Exam: Full ROM, Normal Inspection - Respiratory Exam Respiratory Exam: Clear to Ausculation Bilateral, NORMAL BREATHING PATTERN. absent: Rales, Rhonchi, Wheezes - Cardiovascular Exam Cardiovascular Exam: REGULAR RHYTHM, RRR, +S1, +S2 - GI/Abdominal Exam GI & Abdominal Exam: Soft, Normal Bowel Sounds. absent: Distended, Tenderness - Extremities Exam Extremities Exam: Full ROM, Normal Inspection - Neurological Exam Neurological Exam: Alert, Awake, CN II-XII Intact, Oriented x3 - Psychiatric Exam Psychiatric exam: Normal Affect, Normal Mood - Skin Skin Exam: Intact, Normal Color Assessment and Plan - Assessment and Plan (Free Text) Assessment: 62 yo male recently hospitalized for left lung pneumonia with questionable finding of a lingular cavitation versus abscess in the left lingular region. Evaluation for TB at this time. Two AFB was negative. Require two more. Check procalcitonin levels. Check Quantiferon (results are still pending). Cannot rule out gram positive bacterial etiology as well. Procalcitonin has been low on two checks during this hospitalization. Quantiferon negative. AFB x 3 negative. TB highly unlikely. Procalcitonin less than 0.05 on two checks during this hospitalization. Repeat CT scan shows inproving lingular infiltrate/lesion. Mild leukocytosis. Cultures on this hospitalization appear to be negative so far. Patient does complain of left lower chest pain. Obtain Fungitell testing (received by lab 06/01/2017). On Vancomycin and Meropenem for treatment at this time. Cultures have not shown a particular organism. Consider up to 10 days of antibiotic therapy with Meropenem. On day 8 now of meropenem. Definitive end date for meropenem is 03/2018. Thank you for allowing me to participate in the care of the patient, we will follow with you.
[2017-06-05] MEDS: Meropenem 1g/NS 100mL IVPB 1 GM/100 ML PIGGYBACK IVPB SCH ×3 (05:10→22:28)
[2017-06-05] MEDS: Enoxaparin 40 mg Syringe SC SCH (09:33)
[2017-06-05] MEDS: Vancomycin 1gm in NS 250ml 1 GM/250 ML BAG IVPB SCH ×2 (09:34→22:29)
--- NOTE | 2017-06-05 18:22 | CP.PCM.PN ---
Subjective - Date & Time of Evaluation Date of Evaluation: 06/05/17 Time of Evaluation: 16:30 - Subjective Subjective: Infectious Disease Follow Up: June 05, 2017 62 yo male with initial presentation for left chest discomfort and stabbing sensation. CT scan showing lingular consolidation with central lucencies and fluid levels suspicious for cavitation. Quantiferon sent. Three AFB sent so far. All three AFB was negative. Patient off of isolation. He describes cough productive of yellow sputum. He was [place] [facility] with Levaquin. He completed that course as an outpatient. There is a report of hemoptysis as an outpatient. Cultures negative to date. Quantiferon is negative. Three AFB negative. TB is highly unlikely. Fungitell negative. Clinically improving. On meropenem now day 9. Objective - Vital Signs/Intake and Output Vital Signs (last 24 hours): Temp Pulse Resp BP Pulse Ox 99.8 F H 63 18 111/68 96 06/05/17 18:05 06/05/17 16:00 06/05/17 16:00 06/05/17 16:00 06/05/17 16:00 Intake and Output: 06/05/17 06/05/17 06:59 18:59 Intake Total 120 Output Total 100 Balance 20 - Medications Medications: Current Medications Acetaminophen (Tylenol 325mg Tab) 650 mg PO Q6H PRN PRN Reason: Fever >100.4 F Last Admin: 06/05/17 17:05 Dose: 650 mg Amlodipine Besylate (Norvasc) 10 mg PO DAILY [facility] Last Admin: 06/05/17 09:34 Dose: 10 mg Atorvastatin Calcium (Lipitor) 10 mg PO DIN [facility] Last Admin: 06/05/17 17:06 Dose: 10 mg Cyanocobalamin (Vitamin B12 1000 Mcg Tab) 1,000 mcg PO DAILY [facility] Last Admin: 06/05/17 09:33 Dose: 1,000 mcg Enoxaparin Sodium (Lovenox) 40 mg SC DAILY [facility] PRN Reason: Protocol Last Admin: 06/05/17 09:33 Dose: 40 mg Famotidine (Pepcid) 40 mg PO HS [facility] Last Admin: 06/04/17 22:32 Dose: 40 mg Guaifenesin/Dextromethorphan (Robitussin Dm) 5 ml PO Q4H PRN PRN Reason: Cough Last Admin: 05/29/17 12:30 Dose: 5 ml Meropenem/Sodium Chloride (Meropenem 1g/Ns 100ml Ivpb) 1 gm in 100 mls @ 100 mls/hr IVPB Q8 [facility] PRN Reason: Protocol Last Admin: 06/05/17 14:50 Dose: 100 mls/hr Vancomycin HCl (Vancomycin 1gm) 1 gm in 250 mls @ 250 mls/hr IVPB Q12 [facility] Last Admin: 06/05/17 09:34 Dose: 250 mls/hr Lactulose (Enulose) 20 gm PO DAILY PRN PRN Reason: Constipation Levalbuterol HCl (Xopenex) 0.63 mg IH [id number] PRN PRN Reason: Shortness of Breath Last Admin: 05/30/17 08:22 Dose: 0.63 mg Lisinopril (Zestril) 10 mg PO DAILY [facility] Last Admin: 06/05/17 09:34 Dose: 10 mg Montelukast Sodium (Singulair) 10 mg PO DAILY [facility] Last Admin: 06/05/17 09:33 Dose: 10 mg Nitroglycerin (Nitro-Bid 2% Oint) 1 ea TOP Q4H PRN PRN Reason: accelerated hypertension Ondansetron HCl (Zofran Inj) 4 mg IVP Q6H PRN PRN Reason: Nausea/Vomiting - Labs Labs: 06/04/17 07:00 06/04/17 07:00 - Constitutional Appears: Non-toxic, No Acute Distress, Chronically Ill - Head Exam Head Exam: ATRAUMATIC, NORMOCEPHALIC - Eye Exam Eye Exam: EOMI, PERRL Pupil Exam: NORMAL ACCOMODATION, PERRL - ENT Exam ENT Exam: Mucous Membranes Moist, Normal External Ear Exam, TM's Normal Bilaterally - Neck Exam Neck Exam: Full ROM, Normal Inspection - Respiratory Exam Respiratory Exam: Clear to Ausculation Bilateral, NORMAL BREATHING PATTERN. absent: Rales, Rhonchi, Wheezes - Cardiovascular Exam Cardiovascular Exam: REGULAR RHYTHM, RRR, +S1, +S2 - GI/Abdominal Exam GI & Abdominal Exam: Soft, Normal Bowel Sounds. absent: Distended, Tenderness - Extremities Exam Extremities Exam: Full ROM, Normal Inspection - Neurological Exam Neurological Exam: Alert, Awake, CN II-XII Intact, Oriented x3 - Psychiatric Exam Psychiatric exam: Normal Affect, Normal Mood - Skin Skin Exam: Intact, Normal Color Assessment and Plan - Assessment and Plan (Free Text) Assessment: 62 yo male recently hospitalized for left lung pneumonia with questionable finding of a lingular cavitation versus abscess in the left lingular region. Evaluation for TB at this time. Two AFB was negative. Require two more. Check procalcitonin levels. Check Quantiferon (results are still pending). Cannot rule out gram positive bacterial etiology as well. Procalcitonin has been low on two checks during this hospitalization. Quantiferon negative. AFB x 3 negative. TB highly unlikely. Procalcitonin less than 0.05 on two checks during this hospitalization. Repeat CT scan shows inproving lingular infiltrate/lesion. Mild leukocytosis. Cultures on this hospitalization appear to be negative so far. Patient does complain of left lower chest pain. Obtain Fungitell testing (received by lab 06/01/2017). On Vancomycin and Meropenem for treatment at this time. Cultures have not shown a particular organism. Consider up to 10 days of antibiotic therapy with Meropenem. On day 9 now of meropenem. Definitive end date for meropenem is 03/2018. Would check a follow up CT scan in about one to two months. Pulmonary Dr. Serrato also suggested outpatient PFTs. Thank you for allowing me to participate in the care of the patient, we will follow with you.
--- NOTE | 2017-06-06 02:13 | PN ---
DATE: 06/05/2017 REFERRING PHYSICIAN: Dr. Banerjee. SUBJECTIVE: The patient is lying in the bed, head at 45 degrees. Feels much better. No hemoptysis. He does have some cough. No pleuritic pain. No nausea, vomiting, or diarrhea. No leg pain or leg swelling. OBJECTIVE GENERAL: In no acute distress. VITAL SIGNS: Temperature is 98, T-max is 101, heart rate is 63, respiratory rate is 18, blood pressure 111/68, pulse ox 96% on room air. HEENT: Moist mucous membrane. No ulcer or thrush. NECK: Supple. No JVD. LUNGS: Have a fair airflow with few rhonchi. HEART: S1 and S2. ABDOMEN: Soft, nontender. No organomegaly. EXTREMITIES: No edema. NEUROLOGICAL: Awake and alert. Follows simple command. MEDICATIONS: He is on lactulose p.r.n., Lipitor 10 mg daily, Lovenox 40 mg daily, meropenem 1 gm IV q. 8 hours, Norvasc 10 mg daily, Pepcid 40 mg daily, Robitussin DM 5 mL q. 4 hours p.r.n., Singulair 10 mg daily, Tylenol p.r.n., vancomycin 1 gm IV q. 12 hours, vitamin B12 is 1000 mcg p.o. daily, Xopenex inhaled q. 6 hours p.r.n., Zestril 10 mg daily, and Zofran on p.r.n. basis. LABORATORY DATA: Shows hemoglobin 11.4 yesterday. Microbiology, sputum AFB have been negative. Culture so far is no growth. IMPRESSION AND PLAN: Lingular dense infiltrate with cavitary lesion status post hemoptysis and cough, which has improved; hypertension; hyperlipidemia; chronic obstructive lung disease, started spiking fever again. Clinically, he is okay. We will send stool for clostridium difficile. We will continue meropenem and vancomycin. Need to continue antibiotics another five to six days completing at least two weeks' antibiotics, or if symptoms persist with cough and sputum may need to go beyond that until the cavity is closed. Thank you, and we will follow with you. Ruperto Serrato MD
[2017-06-06] MEDS: Meropenem 1g/NS 100mL IVPB 1 GM/100 ML PIGGYBACK IVPB SCH (05:59)
--- NOTE | 2017-06-06 08:40 | PN ---
DATE: 06/04/2017 SUBJECTIVE: This 62-year-old male was examined at his bedside, nurse, Linda Nesbitt, registered nurse acted as net applications developer and his was present for the interview as well. The patient remains cooperative with nursing staff. He is tolerating diet and medication well. He denies any chest pain and states his left-sided pleuritic pain is a 2/10 as compared to an 8/10 on admission. There have been no reports of fever or chills. PHYSICAL EXAMINATION: VITAL SIGNS: Temperature 98.8, respirations 19, pulse 56 and blood pressure 101/56 with a pulse ox of 100% on room air. HEENT: Head normocephalic, atraumatic. Eyes: No icterus. Ears: Clear. Throat: Noninjected. NECK: Supple. HEART: Regular S1, S2. LUNGS: With rhonchi, left posterior lung. No wheezing, no rales. ABDOMEN: Soft. EXTREMITIES: No edema. SKIN: Without rash. NEUROLOGICAL: Intact. PSYCHOLOGICAL: Alert. VASCULAR: Legs warm to touch. LABORATORY DATA: White count 10,900, hemoglobin 11.4, hematocrit 36.2, platelets 513,000. Sodium 141, K 4.1, chloride 106, bicarb 25, BUN 12, creatinine 0.7, random blood sugar 88. Urinalysis unremarkable. ASO antibody titers negative. TB (QST) testing negative. Serum Fungitell testing pending. Microbiology lab shows AFB smear negative x3, both blood cultures no growth x5 days, urine culture no growth. IMPRESSION: A 62-year-old male with left lung pneumonia, comorbidities of prostate cancer, hyperlipidemia, chronic hypertension, anemia of chronic disease, thyroid nodule, gastroesophageal reflux disease, asthma, vitamin B12 deficiency. All of the above was reviewed in detail with the patient, nursing and at bedside. is aware of all of the above and that the patient will need to have endoscopy, colonoscopy and thyroid monitoring as an outpatient. The patient at present will continue on a heart-healthy bland diet. He is ordered to have Zestril, Xopenex, vitamin B12 orally, IV vancomycin, oral Singulair, Robitussin, Pepcid, Norvasc, meropenem, Lovenox, Lipitor and lactulose p.r.n. obstipation. The patient is being followed by Pulmonary and Infectious Disease consultants. Ultimate plan is to complete full course of parenteral antibiotics as outlined. The patient will need serial CT of the chest upon discharge to ensure adequacy of treatment and endoscopy, colonoscopy and followup of prostate cancer and thyroid nodule issues. Greater than 35 minutes was spent in the care, review of x-rays, labs, medication with the patient and with nurse present at bedside. All questions were answered. Rebekah Banerjee MD MTDD
[2017-06-06 08:57] VITALS: O2SAT 97
--- NOTE | 2017-06-06 08:57 | PN ---
DATE: 06/05/2017 SUBJECTIVE: This 62-year-old male remains hospitalized, receiving parenteral antibiotics including IV vancomycin and IV meropenem under the direction of Dr. Juan Jose Arteaga from Infectious Disease for a left upper lung pneumonia with a cavitary- like abscess. Of note, repeat CAT scanning is showing that the area in question is decreasing in size and the patient's overall clinical picture is improved, with him feeling less pleuritic pain and having no fever, chills, or shortness of breath. There have been no reports of hemoptysis. PHYSICAL EXAMINATION GENERAL: The patient remains alert and oriented. VITAL SIGNS: With a temperature of 98.7, respirations 20, pulse 65, blood pressure 111/70, and pulse ox of 96% room air. HEENT: Head normocephalic, atraumatic. Eyes, no icterus. Ears clear. Throat noninjected. NECK: Supple. HEART: Regular. S1, S2. LUNGS: With occasional rhonchi in the left posterior lung field. ABDOMEN: Soft. EXTREMITIES: No edema. SKIN: Without rash. NEUROLOGICAL: Intact. PSYCHOLOGICAL: Alert. VASCULAR: Legs warm to touch. LABORATORY DATA: White count 10,900, hemoglobin 11.4, hematocrit 36.2, platelets 513,000. Sodium 141, potassium 4.1, chloride 106, bicarb 25, BUN 12, creatinine 0.7, random blood sugar is 88. Influenza A and B serology is negative. IMAGING: Followup CT of the lung showed decreasing size of the left upper lobe abscess. IMPRESSION: With impression being a 62-year-old male with left lung pneumonia, comorbidities of hyperlipidemia, chronic hypertension, peptic ulcer disease with gastroesophageal reflux disease, anemia of chronic disease, asthma, low levels of vitamin B12, chronic obstructive pulmonary disease, thyroid nodule. PLAN: As discussed with the patient, , nursing, co-consultants will be to complete IV antibiotics as outlined. The patient will continue on Zestril, Xopenex, vitamin B12, IV vancomycin, IV meropenem, Singulair, Robitussin DM, Pepcid, Norvasc, Lovenox, and Lipitor. The patient is aware that once he is discharged to home, he will need to schedule endoscopy, colonoscopy, and thyroid nodule followup under the direction of Dr. Stevens, his primary care physician. The patient's was informed of all of the above as well. Of note, microbiology studies to date show no growth on blood cultures, urine cultures for AFB, sputum cultures. TIME SPENT: Greater than 35 minutes were spent in the care management, review of x-rays, labs, medication and instruction of orders with this patient and family today. All questions were answered. Rebekah Banerjee MD
[2017-06-06] MEDS: Enoxaparin 40 mg Syringe SC SCH (09:59)
[2017-06-06] MEDS: Vancomycin 1gm in NS 250ml 1 GM/250 ML BAG IVPB SCH ×2 (10:00→21:18)
--- NOTE | 2017-06-06 13:43 | PN ---
DATE: 06/06/2017 SUBJECTIVE: This 62-year-old male was examined at his bedside and his case was reviewed in detail with himself and his nurse present for the interview. The patient is on day 10 of his required IV antibiotics for left upper lung pneumonia with abscess. Followup CT showing improvement and decreasing size of the infiltrate and abscess and the patient has been recommended to have a full 10-day course of parenteral meropenem by Dr. Juan Jose Arteaga from Infectious Disease. At present, the patient denies any fever, chills, chest pain or shortness of breath and states he has no pleuritic chest pain at present. PHYSICAL EXAMINATION: VITAL SIGNS: Temperature 98.4, respirations 19, pulse 59, blood pressure 107/70 with a pulse ox of 97% on room air. HEENT: Head: Normocephalic, atraumatic. Eyes: No icterus. Ears: Clear. Throat: Noninjected. NECK: Supple. HEART: Regular S1, S2. LUNGS: Clear. ABDOMEN: Soft. EXTREMITIES: No edema. SKIN: Without rash. NEUROLOGICAL: Intact. PSYCHOLOGICAL: Alert. VASCULAR: Legs warm to touch. LABORATORY DATA: White count 10,900, hemoglobin 11.4, hematocrit 36.2, platelets 513,000. Sodium 141, K 4.1, chloride 106, bicarb 25, BUN 12, creatinine 0.7, random blood sugar 88. Influenza A, B negative. Antistreptolysin O antibodies negative. TB (QST) testing negative and Fungitell antibodies negative. IMPRESSION: A 62-year-old male with left upper lung pneumonia with improving abscess size and comorbidities of thyroid nodule, anemia of chronic disease, need for endoscopy and colonoscopy and followup thyroid ultrasound within 6-12 months. Also with need for followup CT of the lung in 1-2 months and comorbidities of hyperlipidemia, hypertension, peptic ulcer disease with gastroesophageal reflux disease, asthma. PLAN: To continue heart-healthy bland diet, Zestril, Xopenex, vitamin B12, IV vancomycin, IV meropenem, Singulair, Robitussin DM, Pepcid, Norvasc, Lovenox, Lipitor and lactulose p.r.n. Greater than 35 minutes were spent in the care of this patient today. As discussed with the patient in detail, if his vital signs are stable and he is clinically able, will be discharged in a.m. for followup with his PMD, Dr. Stevens as outlined. Of note, repeat B12 testing shows level 782. Rebekah Banerjee MD [facility]
--- NOTE | 2017-06-06 20:15 | PN ---
DATE: 06/06/2017 PULMONARY PROGRESS NOTE REFERRING PHYSICIAN: Rebekah Banerjee MD. SUBJECTIVE: He is lying in the bed, head at 45 degrees. Night was unremarkable. Yesterday, he had some fever. No fever today. No nausea. No vomiting. No diarrhea. Complaining about pain in the old IV site. OBJECTIVE: GENERAL: In no acute distress. VITAL SIGNS: Temp is 98, heart rate is 59, respiratory rate is 18, blood pressure 107/70, pulse ox 97% on room air. HEENT: Moist mucous membrane. No ulcer or thrush noted. NECK: Supple. No JVD. LUNGS: Have fair airflow. HEART: S1 and S2. ABDOMEN: Soft and nontender. No organomegaly. EXTREMITIES: There is no edema of lower extremities. Left upper extremity has IV site, has erythema and cord formation. NEUROLOGICAL: Awake, alert. Follows simple command. LABORATORY DATA: Reviewed. No new lab is available since yesterday. MEDICATIONS: He is on lactulose 20 g p.o. daily p.r.n., Lipitor 10 mg daily, Lovenox 40 mg daily, Nitro-Bid to affected area q. 4 hours, Norvasc 10 mg daily, Pepcid 40 mg daily, Robitussin DM 5 mL q. 4 hours p.r.n., Singulair 10 mg daily, Tylenol p.r.n., vancomycin 1 g IV q. 12 hours, vitamin B12 is 1000 mcg daily, Xopenex inhaled q. 6 hours, Zestril 10 mg daily, Zofran p.r.n. basis. IMPRESSION AND PLAN: Lingular dense infiltrate with cavitary lesion, status post hemoptysis, cough and fever, which is improved, hypertension, hyperlipidemia, chronic obstructive lung disease, spiked fever yesterday, probably secondary to intravenous infiltration and has a phlebitis at the left upper extremity. Pulmonary point of view, he is doing okay. Discharge planning is in work. According to Infectious Disease, his meropenem and vancomycin will be stopped. I will suggest to keep on p.o. antibiotics for a few more days. Follow up CT as outpatient to assure the stability of infiltrate. We will suggest pulmonary function test as outpatient. Thank you and we will follow with you. Ruperto Serrato MD [facility] # [id number]
--- NOTE | 2017-06-06 22:15 | CP.PCM.PN ---
Subjective - Date & Time of Evaluation Date of Evaluation: 06/06/17 Time of Evaluation: 19:30 - Subjective Subjective: Infectious Disease Follow Up: June 06, 2017 62 yo male with initial presentation for left chest discomfort and stabbing sensation. CT scan showing lingular consolidation with central lucencies and fluid levels suspicious for cavitation. Quantiferon sent. Three AFB sent so far. All three AFB was negative. Patient off of isolation. He describes cough productive of yellow sputum. He was [place] [facility] Levaquin. He completed that course as an outpatient. There is a report of hemoptysis as an outpatient. Cultures negative to date. Quantiferon is negative. Three AFB negative. TB is highly unlikely. Fungitell negative. Clinically improving. On meropenem now day 10. Objective - Vital Signs/Intake and Output Vital Signs (last 24 hours): Temp Pulse Resp BP Pulse Ox 98.9 F 69 18 108/54 L 97 06/06/17 16:00 06/06/17 16:00 06/06/17 16:00 06/06/17 16:00 06/06/17 16:00 Intake and Output: 06/06/17 06/07/17 18:59 06:59 Intake Total 900 Balance 900 - Medications Medications: Current Medications Acetaminophen (Tylenol 325mg Tab) 650 mg PO Q6H PRN PRN Reason: Fever >100.4 F Last Admin: 06/05/17 17:05 Dose: 650 mg Amlodipine Besylate (Norvasc) 10 mg PO DAILY [facility] Last Admin: 06/06/17 09:59 Dose: 10 mg Atorvastatin Calcium (Lipitor) 10 mg PO DIN [facility] Last Admin: 06/06/17 17:28 Dose: 10 mg Cyanocobalamin (Vitamin B12 1000 Mcg Tab) 1,000 mcg PO DAILY [facility] Last Admin: 06/06/17 09:59 Dose: 1,000 mcg Enoxaparin Sodium (Lovenox) 40 mg SC DAILY NAS PRN Reason: Protocol Last Admin: 06/06/17 09:59 Dose: 40 mg Famotidine (Pepcid) 40 mg PO HS [facility] Last Admin: 06/06/17 21:18 Dose: 40 mg Guaifenesin/Dextromethorphan (Robitussin Dm) 5 ml PO Q4H PRN PRN Reason: Cough Last Admin: 05/29/17 12:30 Dose: 5 ml Vancomycin HCl (Vancomycin 1gm) 1 gm in 250 mls @ 250 mls/hr IVPB Q12 [facility] Last Admin: 06/06/17 21:18 Dose: 250 mls/hr Lactulose (Enulose) 20 gm PO DAILY PRN PRN Reason: Constipation Levalbuterol HCl (Xopenex) 0.63 mg IH [id number] PRN PRN Reason: Shortness of Breath Last Admin: 05/30/17 08:22 Dose: 0.63 mg Lisinopril (Zestril) 10 mg PO DAILY [facility] Last Admin: 06/06/17 09:59 Dose: 10 mg Montelukast Sodium (Singulair) 10 mg PO DAILY [facility] Last Admin: 06/06/17 09:59 Dose: 10 mg Nitroglycerin (Nitro-Bid 2% Oint) 1 ea TOP Q4H PRN PRN Reason: accelerated hypertension Ondansetron HCl (Zofran Inj) 4 mg IVP Q6H PRN PRN Reason: Nausea/Vomiting - Labs Labs: 06/04/17 07:00 06/04/17 07:00 - Constitutional Appears: Non-toxic, No Acute Distress, Chronically Ill - Head Exam Head Exam: ATRAUMATIC, NORMOCEPHALIC - Eye Exam Eye Exam: EOMI, PERRL Pupil Exam: NORMAL ACCOMODATION, PERRL - ENT Exam ENT Exam: Mucous Membranes Moist, Normal External Ear Exam, TM's Normal Bilaterally - Neck Exam Neck Exam: Full ROM, Normal Inspection - Respiratory Exam Respiratory Exam: Clear to Ausculation Bilateral. absent: Chest Wall Tenderness - Cardiovascular Exam Cardiovascular Exam: REGULAR RHYTHM, RRR, +S1, +S2 - GI/Abdominal Exam GI & Abdominal Exam: Soft, Normal Bowel Sounds. absent: Distended, Tenderness - Extremities Exam Extremities Exam: Full ROM, Normal Inspection - Neurological Exam Neurological Exam: Alert, Awake, CN II-XII Intact, Oriented x3 - Psychiatric Exam Psychiatric exam: Normal Affect, Normal Mood - Skin Skin Exam: Intact, Normal Color Assessment and Plan - Assessment and Plan (Free Text) Assessment: 62 yo male recently hospitalized for left lung pneumonia with questionable finding of a lingular cavitation versus abscess in the left lingular region. Evaluation for TB at this time. Two AFB was negative. Require two more. Check procalcitonin levels. Check Quantiferon (results are still pending). Cannot rule out gram positive bacterial etiology as well. Procalcitonin has been low on two checks during this hospitalization. Quantiferon negative. AFB x 3 negative. TB highly unlikely. Procalcitonin less than 0.05 on two checks during this hospitalization. Repeat CT scan shows inproving lingular infiltrate/lesion. Mild leukocytosis. Cultures on this hospitalization appear to be negative so far. Patient does complain of left lower chest pain. Obtain Fungitell testing (received by lab 06/01/2017). On Vancomycin and Meropenem for treatment at this time. Cultures have not shown a particular organism. Consider up to 10 days of antibiotic therapy with Meropenem. On day 10 now of meropenem. Definitive end date for meropenem is 03/2018. Would check a follow up CT scan in about one to two months. Pulmonary Dr. Serrato also suggested outpatient PFTs. Can consider use of Clindamycin for the outpatient setting up to 7 more days. Thank you for allowing me to participate in the care of the patient, we will follow with you.
[2017-06-07 08:49] VITALS: BP 106/68; PULSE 54; RESP 16; TEMP 99
[2017-06-07] MEDS: Enoxaparin 40 mg Syringe SC SCH (09:21)
[2017-06-07] MEDS: Vancomycin 1gm in NS 250ml 1 GM/250 ML BAG IVPB SCH (09:21)
--- NOTE | 2017-06-07 15:56 | CP.PCM.PN ---
Subjective - Date & Time of Evaluation Date of Evaluation: 06/07/17 Time of Evaluation: 14:00 - Subjective Subjective: Infectious Disease Follow Up: June 07, 2017 62 yo male with initial presentation for left chest discomfort and stabbing sensation. CT scan showing lingular consolidation with central lucencies and fluid levels suspicious for cavitation. Quantiferon sent. Three AFB sent so far. All three AFB was negative. Patient off of isolation. He describes cough productive of yellow sputum. He was recently in [facility] and discharged with Levaquin. He completed that course as an outpatient. There is a report of hemoptysis as an outpatient. Cultures negative to date. Quantiferon is negative. Three AFB negative. TB is highly unlikely. Fungitell negative. Clinically improving. Completed meropenem. Objective - Vital Signs/Intake and Output Vital Signs (last 24 hours): Temp Pulse Resp BP Pulse Ox 99 F 54 L 16 106/68 97 06/07/17 08:48 06/07/17 08:48 06/07/17 08:48 06/07/17 09:21 06/07/17 08:48 Intake and Output: 06/07/17 06/07/17 06:59 18:59 Intake Total 900 Balance 900 - Medications Medications: Current Medications Acetaminophen (Tylenol 325mg Tab) 650 mg PO Q6H PRN PRN Reason: Fever >100.4 F Last Admin: 06/05/17 17:05 Dose: 650 mg Amlodipine Besylate (Norvasc) 10 mg PO DAILY [facility] Last Admin: 06/07/17 09:21 Dose: 10 mg Atorvastatin Calcium (Lipitor) 10 mg PO DIN [facility] Last Admin: 06/06/17 17:28 Dose: 10 mg Cyanocobalamin (Vitamin B12 1000 Mcg Tab) 1,000 mcg PO DAILY [facility] Last Admin: 06/07/17 09:21 Dose: 1,000 mcg Enoxaparin Sodium (Lovenox) 40 mg SC DAILY NAS PRN Reason: Protocol Last Admin: 06/07/17 09:21 Dose: 40 mg Famotidine (Pepcid) 40 mg PO HS [facility] Last Admin: 06/06/17 21:18 Dose: 40 mg Guaifenesin/Dextromethorphan (Robitussin Dm) 5 ml PO Q4H PRN PRN Reason: Cough Last Admin: 02/04/18 12:30 Dose: 5 ml Vancomycin HCl (Vancomycin 1gm) 1 gm in 250 mls @ 250 mls/hr IVPB Q12 [facility] Last Admin: 06/07/17 09:21 Dose: 250 mls/hr Lactulose (Enulose) 20 gm PO DAILY PRN PRN Reason: Constipation Levalbuterol HCl (Xopenex) 0.63 mg IH [id number] PRN PRN Reason: Shortness of Breath Last Admin: 05/30/17 08:22 Dose: 0.63 mg Lisinopril (Zestril) 10 mg PO DAILY [facility] Last Admin: 06/07/17 09:21 Dose: 10 mg Montelukast Sodium (Singulair) 10 mg PO DAILY [facility] Last Admin: 06/07/17 09:21 Dose: 10 mg Nitroglycerin (Nitro-Bid 2% Oint) 1 ea TOP Q4H PRN PRN Reason: accelerated hypertension Ondansetron HCl (Zofran Inj) 4 mg IVP Q6H PRN PRN Reason: Nausea/Vomiting - Labs Labs: 06/04/17 07:00 06/04/17 07:00 - Constitutional Appears: Non-toxic, No Acute Distress, Chronically Ill - Head Exam Head Exam: ATRAUMATIC, NORMOCEPHALIC - Eye Exam Eye Exam: EOMI, PERRL Pupil Exam: NORMAL ACCOMODATION, PERRL - ENT Exam ENT Exam: Mucous Membranes Moist, Normal External Ear Exam, TM's Normal Bilaterally - Neck Exam Neck Exam: Full ROM, Normal Inspection - Respiratory Exam Respiratory Exam: Clear to Ausculation Bilateral, NORMAL BREATHING PATTERN. absent: Rales, Rhonchi, Wheezes - Cardiovascular Exam Cardiovascular Exam: REGULAR RHYTHM, +S1, +S2 - GI/Abdominal Exam GI & Abdominal Exam: Soft, Normal Bowel Sounds. absent: Distended, Tenderness - Extremities Exam Extremities Exam: Full ROM, Normal Inspection - Neurological Exam Neurological Exam: Alert, Awake, CN II-XII Intact, Oriented x3 - Psychiatric Exam Psychiatric exam: Normal Affect, Normal Mood - Skin Skin Exam: Intact, Normal Color Assessment and Plan - Assessment and Plan (Free Text) Assessment: 62 yo male recently hospitalized for left lung pneumonia with questionable finding of a lingular cavitation versus abscess in the left lingular region. Evaluation for TB at this time. Two AFB was negative. Require two more. Check procalcitonin levels. Check Quantiferon (results are still pending). Cannot rule out gram positive bacterial etiology as well. Procalcitonin has been low on two checks during this hospitalization. Quantiferon negative. AFB x 3 negative. TB highly unlikely. Procalcitonin less than 0.05 on two checks during this hospitalization. Repeat CT scan shows inproving lingular infiltrate/lesion. Mild leukocytosis. Cultures on this hospitalization appear to be negative so far. Patient does complain of left lower chest pain. Obtain Fungitell testing (received by lab 06/01/2017)... result was negative. On Vancomycin and Meropenem for treatment at this time. Cultures have not shown a particular organism. Consider up to 10 days of antibiotic therapy with Meropenem. On day 10 now of meropenem. Definitive end date for meropenem is 03/2018. Would check a follow up CT scan in about one to two months. Pulmonary Dr. Serrato also suggested outpatient PFTs. Can consider use of Clindamycin 300 mg q8hrs for the outpatient setting up to 7 more days. Thank you for allowing me to participate in the care of the patient, we will follow with you.
--- NOTE | 2017-06-08 12:29 | DS ---
FINAL DIAGNOSES: Left upper lung pneumonia; left upper lung abscess, improving; hyperlipidemia; chronic hypertension; peptic ulcer disease with gastroesophageal reflux disease; asthma; vitamin B12 deficiency, improved; anemia of chronic disease; history of prostate cancer; thyroid nodule. DISPOSITION: Home. FOLLOWUP: The patient to follow up with his private medical doctor, Dr. Stevens within 48 hours. The patient was given photocopies of his latest CT of chest, thyroid ultrasound and progress note of Dr. Christoph Antonio with recommendation for outpatient thyroid ultrasound followup versus fine-needle aspiration of thyroid nodule for Dr. Stevens and patient to decide the timing of. Also, the patient was given a note for his PMD to follow up a CT of the chest within 1-2 months for adequacy of treatment of left upper lung pneumonia. Also, the patient was given note for Dr. Stevens to follow his labs as well as to schedule endoscopy and colonoscopy for this patient when medically stable. DISCHARGE MEDICATIONS: Include Norvasc 10 mg p.o. daily, Prilosec 20 mg p.o. daily, Singulair 10 mg p.o. daily, lisinopril/hydrochlorothiazide 20-25 mg p.o. daily, Lipitor 10 mg p.o. daily, clindamycin 300 mg p.o. t.i.d. #[address] Juan Jose Arteaga from Infectious Disease, also vitamin B12 sublingual 1000 mcg daily. SUMMARY: This 62-year-old male was admitted to [facility] with fever and radiographic findings of worsening left upper lung pneumonia on emergency room evaluation. The patient was seen in consultation by Dr. Juan Jose Arteaga from Infectious Disease and Dr. Ruperto Serrato from Pulmonary. The patient was initially placed in isolation to rule out tuberculosis versus fungal infection, both which were proven negative by blood and sputum testing. Microbiology study showed blood cultures with no growth, urine culture no growth, three AFB smears that were negative for TB and a blood serology Fungitell test which was also unremarkable. At the time of discharge, the patient who was admitted with pleuritic chest pain was absolutely chest pain free. Vital signs showed temperature of 98.9, respirations 16, pulse 69, blood pressure 106/68 with a pulse ox of 97% on room air. The patient was ambulating independently. Labs; white count 10,900; hemoglobin of 11.4; hematocrit 36.2; platelets 513,000. Sodium 141, K 4.1, chloride of 106, bicarb 25, BUN 12, creatinine 0.7, random blood sugar 88. Urinalysis was unremarkable. Iron 48, TIBC 178, percent saturation 27% with a ferritin level of 267 consistent with anemia of chronic disease, B12 of 782. Procalcitonin level less than 0.05 x2. Antistreptolysin or ASO antibodies negative. TB test (QFT) negative. Fungitell testing negative. Chest CT dated 06/01/[address] Dempsey. It showed a decreased size of the infiltrate and abscess collection in the lingular section of the left upper lobe. The patient had no evidence of pulmonary vascular congestion nor adenopathy. The patient is discharged home, needs follow up with his PMD as outlined above. He is aware that he needs to be thorough with his followup of his thyroid nodule, scheduling of endoscopy and colonoscopy for anemia of chronic disease. For followup of chest CTs given his recent complicated pneumonia and was also advised for any change in signs and symptoms, to present directly to the [facility] ER. Greater than 35 minutes was spent in the care management; review of x-rays, labs, medication and outlining of summary for his PMD, Dr. Stevens and orders for this patient as an outpatient. Hopefully, he will be compliant with the above. All questions were answered. Rebekah Banerjee MD
== END 2017-06-07 15:15 | disposition home or self-care (01) | DRG 178 ==
LOC: ED 10:07 → ERH 13:21 → 3RSO 18:45 → ERH 18:46 → 3RSO 20:47
PROVIDERS: ADMIT Internal Medicine; ATTEND Internal Medicine
PROC: 3E0F7GC Introduction of Other Therapeutic Substance into Respiratory Tract, Via Natural or Artificial Opening (ICD-10-PCS; principal; 2017-05-28)
DX: J85.1 Abscess of lung with pneumonia (principal); J44.0 Chronic obstructive pulmonary disease with (acute) lower respiratory infection; I80.8 Phlebitis and thrombophlebitis of other sites; T80.1XXA Vascular complications following infusion, transfusion and therapeutic injection, initial encounter; I10 Essential (primary) hypertension; D63.8 Anemia in other chronic diseases classified elsewhere; E04.1 Nontoxic single thyroid nodule; E78.00 Pure hypercholesterolemia, unspecified; K21.9 Gastro-esophageal reflux disease without esophagitis; E53.8 Deficiency of other specified B group vitamins; K27.9 Peptic ulcer, site unspecified, unspecified as acute or chronic, without hemorrhage or perforation; K44.9 Diaphragmatic hernia without obstruction or gangrene; Y84.8 Other medical procedures as the cause of abnormal reaction of the patient, or of later complication, without mention of misadventure at the time of the procedure; Z78.9 Other specified health status; Z85.46 Personal history of malignant neoplasm of prostate; Z87.01 Personal history of pneumonia (recurrent)